=== PATIENT | male | born 1990 | race Caucasian/White ===

== ENCOUNTER 2017-05-04 10:45 | Emergency (ER) | payer BC, SELFPAY | END 2017-05-04 12:45 | disposition home or self-care (01) | PROVIDERS: Emergency Provider Emergency Medicine; Family Provider Family Medicine; Visit Provider Emergency Medicine | DX: T67.1XXA Heat syncope, initial encounter (principal) | CPT/HCPCS: 70450; 71020; 80053; 82550; 82553; 84484; 85025; 93005; 99283 ==

== ENCOUNTER 2020-02-19 11:34 | Emergency (ER) | payer BC, SELFPAY ==
[2020-02-19 11:35] VITALS: BP 134/87; PULSE 64; RESP 17; TEMP 37.2; O2SAT 99; BMI 25.8
--- NOTE | 2020-02-19 11:51 | PC.NURSE ---
PO challenged pt and he was able to swallow some dr pepper, pt states it does hurt right in the center of his chest when he swallows but was able to get it down
--- NOTE | 2020-02-19 12:39 | HMH.EDGENADL ---
ED Disposition Clinical Impression: Esophageal abrasion Qualifiers: Encounter type: initial encounter Qualified Code(s): S27.818A - Other injury of esophagus (thoracic part), initial encounter Disposition: Home, Self-Care Condition on Discharge: Fair Instructions: DI for Skin Abscess, DI for Esophageal Dysphagia Additional Instructions: Esophageal swallow study and it shows No definite esophageal foreign body. There is a small hiatal hernia with a mildly constricting Schatzki's ring with edema at the GE junction Please follow up as needed Referrals: Sanjiv Gordon MD [Primary Care Provider] - Time of Disposition: 15:00 - Critical Care Critical Care Time: No Attestation: On 02/19/20, the high probability of a clinically significant, sudden or life threatening deterioration of the following system(s) required my full and direct attention, intervention and personal management. The time I documented below is in addition to time spent performing reported procedures but includes the following listed in this critical care notation. Medical Decision Making - Medical Records Medical records reviewed: Yes: I reviewed the patient's medical records. MR Comment: Pt states last night he was eating a piece of deer steak meat and it became lodged in his esophagus and states he cant swallow anything, pt states he also has vomited and noticed blood in the vomit. He is not sure if it went down but it irritates. Here in the ER he was able to swallow liquids. CT report shows the following. findings were discussed with the patient and re assurance given. There is a small hiatal hernia with a minimally constricting. Schatzki's ring. There was a spasm noted within the distal esophagus. on multiple images. Initially there was a question of an internal. filling defect in the distal esophagus. However with different. positioning, this is felt to just be due to some mucosal edema. No. contrast extravasation evident. - Brian Inquiry Pt receiving controlled substance: No Brian was queried for this patient: No Vital Signs: 02/19/20 11:35 Temperature 99 F Temperature Source Oral Pulse Rate [Right] 64 Respiratory Rate 17 Blood Pressure [Right Arm] 134/87 Blood Pressure Mean [Right Arm] 102 02 Sat by Pulse Oximetry 99 - Radiology Data #1 Image(s): Abdomen Image Reviewed: Yes I reviewed the patient's radiology results Preliminary Findings: Normal/NAD [place] [address] [place] [address] Fluoroscopy Report Signed Patient: David Thakkar MR#: [id number] : 1990 Acct:[id number] Age/Sex: 29 / M ADM Date: 02/19/20 Loc: ER Attending Dr: Ordering Physician: Paulino Mahoney MD Date of Service: 02/19/20 Procedure(s): FL barium swallow Accession Number(s): [id number] cc: Rob Joya MD; Sanjiv Gordon MD~ PROCEDURE: FL BARIUM SWALLOW CLINICAL INDICATION: Evaluate for esophageal foreign body. Dysphagia, feels like something is stuck in the throat COMPARISON: No exams were available for comparison TECHNIQUE: In the upright position the patient was observed to initially swallow a small amount of Gastrografin followed with barium in both the AP and lateral view. The cervical esophagus was examined under fluoroscopy with images obtained. The patient was then placed prone in the right anterior oblique position and was observed to swallow barium. FLUOROSCOPY TIME: 4 minutes and 6 seconds FINDINGS: There is a small hiatal hernia with a minimally constricting Schatzki's ring. There was a spasm noted within the distal esophagus on multiple images. Initially there was a question of an internal filling defect in the distal esophagus. However with different positioning, this is felt to just be due to some mucosal edema. No contrast extravasation evident. IMPRESSION: No definite esophageal foreign body
[2020-02-19 15:13] VITALS: BP 122/72; PULSE 78; RESP 16; TEMP 36.6; O2SAT 98
== END 2020-02-19 15:14 | disposition home or self-care (01) ==
PROVIDERS: Emergency Provider Emergency Medicine; PCP Family Medicine
DX: S27.818A Other injury of esophagus (thoracic part), initial encounter (principal); T18.128A Food in esophagus causing other injury, initial encounter; K22.2 Esophageal obstruction; K44.9 Diaphragmatic hernia without obstruction or gangrene; Z88.2 Allergy status to sulfonamides
CPT/HCPCS: 74220; 99282

== ENCOUNTER → 2020-03-29 10:41 | Outpatient (CLI) | payer BC, SELFPAY ==
[2020-03-29 15:35] LABS: Coronavirus 19 IgG Antibody Negative (Negative); Coronavirus 19 IgM Antibody Negative (Negative)
== END ==
PROVIDERS: PCP Family Medicine; Visit Provider Family Medicine
DX: Z03.818 Encounter for observation for suspected exposure to other biological agents ruled out (principal)
CPT/HCPCS: 86328

== ENCOUNTER → 2020-04-07 10:24 | Outpatient (CLI) | payer BC, SELFPAY ==
[2020-04-07 16:13] LABS: Coronavirus 19 IgG Antibody Negative (Negative); Coronavirus 19 IgM Antibody Negative (Negative)
== END ==
PROVIDERS: PCP Family Medicine; Visit Provider Family Medicine
DX: Z11.59 Encounter for screening for other viral diseases (principal)
CPT/HCPCS: 86328

== ENCOUNTER 2022-05-10 13:35 | Emergency (ER) | payer BC, SELFPAY ==
[2022-05-10 14:05] VITALS: BP 137/96; PULSE 74; RESP 19; TEMP 36.8; O2SAT 96; BMI 29.5
--- NOTE | 2022-05-10 14:18 | EXP.UTC ---
Discharge Plan Disposition Patient Disposition: Home, Self-Care Condition: Good Prescriptions Prescriptions: New benzonatate [benzonatate] 100 mg capsule 100 mg PO TIDP PRN (Reason: Cough) Qty: 30 0RF methylprednisolone 4 mg Tablets,Dose Pack 4 mg PO DIRECTED Qty: 21 0RF amoxicillin-pot clavulanate 875-125 mg Tablet 1 tab PO Q12H Qty: 20 0RF Referrals Follow up/Referrals: Sanjiv Gordon MD [Primary Care Provider] - See instructions Activity Restrictions/Add. Instructions Additional Instructions/Restrictions: Drink plenty of fluids. Take tylenol or ibuprofen for pain or fever. Take the medications as directed. Follow up with your regular doctor. GO TO THE ER FOR ANY WORSENING SYMPTOMS Throw your tooth brush away and get a new one. Clinical Impressions Clinical Impression: Strep throat Stand Alone Forms Stand Alone Forms: Work/School Release Instructions Patient Instructions: Strep Throat, DI for Strep Throat Discharge ED Provider: Jesse Landers [facility] General Stated complaint: cough, sore throat Time Seen by Provider: 05/10/22 14:12 History of Present Illness Provider Complaint: He states that for the past 2 days he has had a sore throat, chills, fever, and a productive cough with yellowish sputum. Related Data Previous Rx's Medication Instructions Recorded amoxicillin 875 mg-potassium 1 tab PO Q12H #20 tabs 05/10/22 clavulanate 125 mg tablet benzonatate 100 mg capsule 100 mg PO TIDP PRN Cough #30 caps 05/10/22 methylprednisolone 4 mg tablets in 4 mg PO DIRECTED #21 tabs 05/10/22 a dose pack Allergies Allergy/AdvReac Type Severity Reaction Status Date / Time Sulfa (Sulfonamide Allergy Mild Verified 05/10/22 14:38 Antibiotics) [SULFA (SULFONAMIDE ANTIBIOTICS)] [facility] Disclaimer: The information contained in this section may have been updated after the patient was seen, as this information can be updated by other users. Social History Smoking Status: Never smoker alcohol intake: never current occupational status: employed Travel in the last 8 weeks: None ROS Obtained: Yes All systems reviewed & no additional complaints except as documented Constitutional Constitutional: Reports chills and Reports fever(s) Eyes Eyes: Denies eye discharge ENT Ears, Nose, Mouth, and Throat: Reports as per HPI Cardiovascular Cardiovascular: Denies chest pain Respiratory Respiratory: Denies chest congestion and Reports cough Gastrointestinal Gastrointestingal: Reports nausea; Denies abdominal pain, constipation, cramping, diarrhea or vomiting Musculoskeletal Musculoskeletal: Denies arthralgias Integumentary/Breasts Skin/Breast: Denies rash Neurologic Neurologic: Denies paresthesias Physical Exam General General appearance: alert and in no apparent distress Head Head exam: atraumatic, normocephalic and normal inspection Eye Eye exam: Present normal appearance, PERRL and EOMI ENT ENT exam: Present mucous membranes moist and normal external ear exam Expanded ENT Exam TM/Canal exam: Bilateral TM: erythema and bulging Nose exam: Absent sinus tenderness Mouth exam: Present normal external inspection; Absent drooling Teeth exam: Present normal inspection Throat exam: Present tonsillar erythema, tonsillomegaly and tonsillar exudate Neck Neck exam: Present normal inspection, full ROM and trachea midline; Absent tenderness, meningismus or lymphadenopathy Chest Chest inspection: Present normal inspection and symmetric chest wall rise; Absent tenderness Respiratory Respiratory exam: Present normal lung sounds bilaterally; Absent respiratory distress, wheezes or stridor Cardiovascular Cardiovascular exam: Present regular rate and normal rhythm; Absent systolic murmur or diastolic murmur Abdominal Exam Abdominal exam: Present soft and normal bowel sounds; Absent distention, tenderness,
[2022-05-10 14:26] LABS: UTC Strep Screen (Rapid) Positive (Negative)
[2022-05-10 15:36] VITALS: BP 137/96; PULSE 74; RESP 19; TEMP 36.8; O2SAT 96
== END 2022-05-10 15:36 | disposition home or self-care (01) ==
PROVIDERS: Emergency Provider Nurse Practitioner Family; PCP Family Medicine
DX: J02.0 Streptococcal pharyngitis (principal)
CPT/HCPCS: 87880; 99212; 99213; G0463

== ENCOUNTER 2023-10-21 08:00 | Outpatient (RCR) | payer BC, SELFPAY | END 2023-11-18 16:30 | disposition home or self-care (01) | LOC: PT 08:00 | PROVIDERS: Visit Provider Podiatrist Foot & Ankle Surgery | DX: M25.571 Pain in right ankle and joints of right foot (principal); S93.491A Sprain of other ligament of right ankle, initial encounter; S93.411A Sprain of calcaneofibular ligament of right ankle, initial encounter | CPT/HCPCS: 97010; 97014; 97035; 97110; 97112; 97163; G0283 ==

== ENCOUNTER 2024-09-22 10:05 | Outpatient (CLI) | payer BC, SELFPAY | END 2024-09-22 23:59 | disposition home or self-care (01) | LOC: LAB 10:06 | PROVIDERS: PCP Nurse Practitioner; Visit Provider Internal Medicine Gastroenterology | DX: R19.5 Other fecal abnormalities (principal); R14.0 Abdominal distension (gaseous) ==

== ENCOUNTER 2024-10-14 15:23 | Outpatient (CLI) | payer BC, SELFPAY ==
--- OUTSIDE RECORDS SUMMARY | 2024-10-07 10:00 | XMS_ITS | Encounter Summary ---
Author Organization [facility] Address [address] [place] [address] Phone [email or web address] Care Team Providers Care Human Performance Technologist Name Role Phone Sanjiv Gordon MD Primary Care Provider [phone] Reason for Visit * Reason Comments Neurological Issue Encounter Details Date Type Department Care Team (Latest Contact Info) Description 10/07/2024 10:00 AM EDT Clinical Support [place] [facility] [address] [place] [address] Arianna Hart, TERA [address] [place] [address] Elevated blood pressure reading (Primary [...] is a 33 y.o. male. WD ID: [id number] Employer: [employer] Date of Hire: 09/17/2016 Cost Center: [id number] Description: ASY 1 Team: Jeffrey 2 Shift: 1 Full-time GL and #: Thanh Patton Responded to tones dropped for LHD in 300. Onset: 0920am Symptoms: LHD, 'felt like he was going to pass out', shakiness Transported TM back to [facility] 2000 via [facility]Z-Go without stretcher. Notes: [...] SR, no acute changes/ectopy. us Arianna Hart DECISION UNIT RN ECG ORDERABLES Final Resul t * (ABNORMAL) [...] giddiness documented in this encounter Care Teams Human Performance Technologist Relationship Specialty Start Date End Date Sanjiv Gordon MD [facility] [address] [place] [address] PCP - General 10/20/20 documented as of this encounter
--- OUTSIDE RECORDS SUMMARY | 2024-10-14 15:28 | XMS_ITS | Referral Summary ---
Author Organization [facility] [facility] [employer] Address [address] [place] [address] Care Team Providers Care Forestry Technician Name Role Phone Unavailable Primary Care Provider Unavailabl e Allergies Active Allergy Reactions Criticality Noted Date Comments Sulfur Swelling High 09/17/2023 Medications No known medications Social History Tobacco Use Types Packs/Day Years Used Date Smoking Tobacco: Never Smokeless Tobacco: Current Tobacco Cessation:Ready to Q uit: Not Asked; Counseling Given: Not Answered Alcohol Use Standard Drinks/Week Comments Never 0 (1 standard drink = 0.6 oz pur e alcohol) Interpersonal Safety Answer Date Record ed Family or friends hurt you Not on file 09/11 Family or friends insult you Not on file 01/2024 Family or friends threaten you Not on file 0 09/12/2023 Family or friends scream or curse at you Not on file 09/12/2023 Food Insecurity Answer Date Recorded Food run out past 12 months Not on file 01/2024 Food did not last past 12 months Not on file 09/12/2023 Employment Answer Date Recorded Help finding and keeping a job Not on file 0 09/12/2023 Family and Community Support Answer Jian e Recorded Help with Day to Day Activities Not on file 09/12/2023 Feeling Lonely or Isolated Not on file 09/11 Educational Attainment Answer Date Gaurav rded Speak language other than Bulgarian at home Not on file 09/12/2023 Want help with school or training Not on file 09/12/2023 Depression Answer Date Recorded PHQ-2 Risk Not on file 09/12/2023 Disabilities Answer Date Recorded Difficulty concentrating Not on file 024 Difficulty doing errands alone Not on file 0 09/12/2023 Substance Use Answer Date Recorded Used prescription meds for non-medical reasons N ot on file 09/12/2023 Used illegal drugs past 12 months Not on file 09/12/2023 Sex and Gender Information Value Date Recorded Sex Assigned at Not on file Legal Sex Male 6:04 PM CDT Gender Identity Not on file Sexual Orientation Not on file Last Filed Vital Signs Vital Sign Reading Time Taken Comments Blood Pressure 146/77 10/29/2023 10:22 AM EDT Pulse 81 10/29/2023 10:22 AM EDT Temperature - - Respiratory Rate 18 09/17/2023 11:23 AM EDT Oxygen Saturation - - Inhaled Oxygen Concentration - - Weight 90 kg (198 lb 6.6 oz) 10/29/2023 10:22 AM EDT Height 170.2 cm (5' 7 ) 10/29/2023 10:22 AM EDT Body Mass Index 31.08 10/29/2023 10:22 AM EDT Plan of Treatment Not on file Insurance BLUE CROSS/BLUE SHIELD
--- OUTSIDE RECORDS SUMMARY | 2024-10-14 15:28 | XMS_ITS | Clinical Summary ---
Author Organization [facility] Address [address] [place] [address] Care Team Providers Care Ekg Technician Name Role Phone Unavailable Primary Care Provider Unavailabl e Allergies Active Allergy Reactions Criticality Noted Date Comments Sulfur Swelling High 09/17/2023 Medications No known medications Family History Medical History Relation Name Comments High blood pressure Father Nelson Thakkar Cancer Maternal Grandmother R Bijan Relation Name Status Comments Father Nelson Thakkar Maternal Grandmother R Bijan Social History Tobacco Use Types Packs/Day Years [...] Date Gaurav rded Speak language other than Kenyan at home Not on file 09/12/2023 Want [...] 10/29/2023 10:22 AM EDT Plan of Treatment Health Maintenance Due Date Last Done Comments Depression Screening (12+) 2000 Tobacco Cessation Counseling and Screening (12+) 2000 HIV Screening 12/14/2003 Hepatitis C Screening 2006 DTAP/TDAP/TD VACCINES (1 - Tdap) 12/14/2007 Lipid Panel 12/14/2023 COVID-19 VACCINE ( - 2023-2 5 season) 2024 Influenza Vaccine (Season Ended) 2025 Pneumococcal Vaccine: 0-49 Years Aged Out No longer eligible based on patient's age to complete this topic Insurance BLUE CROSS/BLUE SHIELD
--- OUTSIDE RECORDS SUMMARY | 2024-10-14 15:28 | XMS_ITS | Clinical Summary ---
Author Organization [facility] Address [address] [place] [address] Care Team Providers Care Patent Law Specialist Name Role Phone Sanjiv Gordon MD Primary Care Provider + [phone] Allergies Active Allergy Reactions Criticality Noted Date Comments Sulfa Drugs Other - please docum ent in the comment field Low 10/20/2020 Medications ibuprofen 200 MG tablet Take by mouth every 6 (six) hours if needed for mild pain. Active Social History Tobacco Use Types Packs/Day Years Used Date Smoking Tobacco: Never Smokeless Tobacco: Current Chew Sex and Gender Information Value Date Recorded Sex Assigned at Not on file Legal Sex Male 6:58 PM EDT Gender Identity Not on file Sexual Orientation Not on file Last Filed Vital Signs Vital Sign Reading Time Taken Comments Blood Pressure 128/87 12/20/2020 3:00 PM EDT Pulse 67 12/20/2020 3:00 PM EDT Temperature - - Respiratory Rate - - Oxygen Saturation 100% 12/20/2020 3:00 PM EDT Inhaled Oxygen Concentration - - Weight 81.2 kg (179 lb) 12/20/2020 3:00 PM EDT Height - - Body Mass Index - - Plan of Treatment Health Maintenance Due Date Last Done Comments [facility]-Depression Screening 1988 [facility]-/Child/Adol SDOH Screenings 1988 [facility]-Hepatitis B Vaccines (2 of 3 - 3-dose series) 01/10/2001 2000 [facility]-Varicella Vaccines (1 of 2 - 13+ 2-dose series) 2001 HPV Vaccines (1 - Male 3-dos e series) 12/14/2003 [facility]- SDOH Screenings 2006 [facility]Y-Adult SDOH Screenings 2006 [facility]Y-DTaP,Tdap,and Td Vaccine s (1 - Tdap) 12/14/2007 [id number] Vaccine (1 - 20 24-25 season) 2024 [facility]-Influenza Vaccine (Seaso n Ended) 2025 [facility]Y-Zoster Vaccines (1 of 2) 2038 [facility]Y-HIB Vaccines Aged Out No longer e ligible based on patient's age to complete this topic [facility]-Hepatitis A Vaccines Aged Out No longer eligible based on patient's age to complete this topic [facility]Y-IPV Vaccines Aged Out No longer e ligible based on patient's age to complete this topic [facility]Y-Pneumococcal Vaccine: Pediatrics (0 to 5 Years) and At-Risk Patients (6 to 49 Years) Aged Out No long er eligible based on patient's age to complete this topic [facility]Y-Rotavirus Vaccines Aged Out No lo nger eligible based on patient's age to complete this topic [place] [address] Care Teams Patent Law Specialist Relationship Specialty Start Date End Date Sanjiv Gordon MD [address] [facility] [address] [place] [address] PCP - General 09/16/20
--- OUTSIDE RECORDS SUMMARY | 2024-10-14 15:28 | XMS_ITS | Clinical Summary ---
Author Organization [facility] Address [address] [place] [address] Phone [email or web address] Care Team Providers Care Piece Meat Trimmer Name Role Phone Sanjiv Gordon MD Primary Care Provider [phone] Allergies Active Allergy Reactions Criticality Noted Date Comments Sulfa Antibiotics 10/20/2020 Medications ergocalciferol (VITAMIN D2) 1.25 MG (68678 UT) capsule TAKE ONE CAPSULE BY MOUTH every WEEK FOR 90 DAYS 07/28/2024 Active Active Problems Problem Noted Date Diagnosed Date Esophageal abrasion 09/09/2023 Encounters Date Type Department Care Team Description 10/07/2024 10:00 AM EDT Clinical Support DEY[facility] Buttwn [address] [place] [phone] Arianna Hart NP Elevated blood pressure reading (Primary Dx); Dizziness from Last 3 Months Social History Tobacco Use Types Packs/Day Years Used Date Smoking Tobacco: Never Smokeless Tobacco: Current Tobacco Cessation:Ready to Q uit: Not Asked; Counseling Given: Not Answered Intimate Partner Violence Answer Date R ecorded [...] Pulse 65 10/07/2024 10:44 AM EDT Temperature 35.8 C (96.4 F) 02/03/2021 6:36 AM EDT Respiratory Rate 16 10/07/2024 9:50 AM EDT Oxygen Saturation 99% 10/07/2024 10:05 AM EDT Inhaled Oxygen Concentration - - Weight 91.6 kg (202 lb) 11/04/2023 6:06 AM EDT Height 170.2 cm (5' 7 ) 10/20/2020 10:05 AM EDT Body Mass Index 31.64 10/20/2020 10:05 AM EDT Plan of Treatment Health Maintenance Due Date Last Done Comments Dental Cleaning/Exam 1988 HIV Screening 1988 Hepatitis C Screening 1988 Hepatitis B Immunization (2 of 3 - 3-dose series) 01/10/2001 2000 Annual Preventive Exam 2006 Hep B Infection Screening - Triple Screen 2006 Tetanus Diphtheria and Pertu ssis Immunization (1 - Tdap) 12/14/2007 Covid-19 Immunization (1 - 2 024-25 season) 2024 Influenza Immunization (Seas on Ended) 2025 HIB Immunization Aged Out No longer e ligible based on patient's age to complete this topic HPV Immunization Aged Out No longer e ligible based on patient's age to complete this topic Hepatitis A Immunization Aged Out No longer eligible based on patient's age to complete this topic Pneumococcal: Ped (0 to 5 Yr s) and At-Risk Member (6 to 64 Yrs) Aged Out No longer e ligible based on patient's age to complete this topic Polio Immunization Aged Out No longer eligible based on patient's age to complete this topic Varicella Immunization Aged Out No lo nger eligible based on patient's age to complete this topic Procedures Procedure Name Priority Date/Time Associated Diagnosis Comments ECG 12-LEAD Routine 10/07/2024 11:17 AM EDT Dizziness POCT GLUCOSE Routine 10/07/2024 10:22 AM EDT Dizziness from Last 3 Months Results * ECG 12 lead (10/07/2024 11:17 AM EDT) Marlenes Arianna Hart NP - 10/07/2024 11:17 AM EDT SR, no acute changes/ectopy. Arianna Hart NP ECG ORDERABLES Final Resul t * (ABNORMAL) POCT glucose (10/07/2024 10:22 AM EDT) Glucose, POC 104(A) 65 - 99 mg/dL Glucose (Glucometer), POC IQC Yes, verified internal control performed correctly. Lot Number see comments Comment:ER bag 1 Expiration Date see comments Comment:ER bag 1 Blood (Blood, Capillary) 10/07/2024 10:22 AM EDT Arianna Hart NP POINT OF CARE TEST ORDERABL ES Final Result from Last 3 Months Insurance OPT OUT NO COPAY NB OPT OUT NO COPAY NB Care Teams Piece Meat Trimmer Relationship Specialty Start Date End Date Sanjiv Gordon MD [address] [place] [address] [place] [address] PCP - General 10/20/20
== END 2024-10-14 23:59 | disposition home or self-care (01) ==
LOC: RT 15:24
PROVIDERS: PCP Nurse Practitioner; Visit Provider Internal Medicine
DX: I49.3 Ventricular premature depolarization (principal); I49.1 Atrial premature depolarization
CPT/HCPCS: 93270

== ENCOUNTER 2024-10-15 07:45 | Outpatient (CLI) | payer BC, SELFPAY ==
--- OUTSIDE RECORDS SUMMARY | 2024-10-07 10:00 | XMS_ITS | Encounter Summary ---
Author Organization [facility] Address [address] [place] [address] Phone [email or web address] Care Team Providers Care Associate Professor Of Surgery Name Role Phone Sanjiv Gordon MD Primary Care Provider [phone] Reason for Visit * Reason Comments Neurological Issue Encounter Details Date Type Department Care Team (Latest Contact Info) Description 10/07/2024 10:00 AM EDT Clinical Support [place] [facility] [address] [place] [address] Arianna Hart, TERA [address] [place] [address] Elevated blood pressure reading (Primary Dx); Dizziness Social History Tobacco Use Types Packs/Day Years Used Date Smoking Tobacco: Never Smokeless Tobacco: Current Intimate Partner Violence Answer Date R ecorded Insults You Not on file 08/16/2020 Threatens You Not on file 08/16/2020 Screams at You Not on file 08/16/2020 Physically Hurt Not on file 08/16/2020 Intimate Partner Violence Score Not on file 08/16/2020 Depression Answer Date Recorded PHQ-9 Total Score 0 02/03/2021 Stress Answer Date Recorded Stress in your Life Not on file 03/09/2024 Dealing with Stress 3 03/09/2024 Sex and Gender Information Value Date Recorded Sex Assigned at Not on file Legal Sex Male 7:30 AM CDT Gender Identity Not on file Sexual Orientation Not on file documented as of this encounter Last Filed Vital Signs Vital Sign Reading Time Taken Comments Blood Pressure 137/87 10/07/2024 10:44 AM EDT Pulse 65 10/07/2024 10:44 AM EDT Temperature - - Respiratory Rate 16 10/07/2024 9:50 AM EDT Oxygen Saturation 99% 10/07/2024 10:05 AM EDT Inhaled Oxygen Concentration - - Weight - - Height - - Body Mass Index - - documented in this encounter Patient Instructions * Patient Instructions* Arianna Hart NP - 10/07/2024 10:00 AM EDT TM not fit for duty due to persistent dizziness. TM declined ER eval. Will contact his PCP. Family to transport today. F/u once released to RTW reg duty. documented in this encounter Progress Notes * Arianna Hart NP - 10/07/2024 10:00 AM EDT Subjective David Thakkar is a 33 y.o. male. WD ID: [id number] Employer: [employer] Date of Hire: 09/17/2016 Cost Center: [id number] Description: ASY 1 Team: Jeffrey 2 Shift: 1 Full-time GL and #: Thanh Patton Responded to tones dropped for LHD in 300. Onset: 0920am Symptoms: LHD, 'felt like he was going to pass out', shakiness Transported TM back to [facility] 2000 via [facility]Go without stretcher. Notes: Upon arrival, TM is A&Ox4. GCS 15. Skin, pink, warm and dry. TM reports while on line hegot really dizzy and leaned into car because he felt he was going to pass out. TM denies any LOC. TM denies any hitting his head. TM denies any CP or SOB. FSBG 104 mg/dl. Radial pulses strong and palpable. TM reports when he was 24 yo he had episodes where he would pass out and have seizure like activity. TM states when that happened he had a full work up including EEG monitoring, echo, EKG, stress test and a diagnostic heart cath. TM states they found an arrhythmia, but patient is a poor historian and unsure of the diagnosis. TM denies taking any medications, and has not seen a neurologist/ca rdiologist since he was 24. TM states he last had a dizzy spell around 6 months ago, and syncopal episode 5 years ago but was never seen by medical. TM states he has not ate anything this morning, and has had soda. TM states he has not felt well since waking this morning. TM reports a cough and nausea and dry heaving. TM denies any being around anyone with covid or flu that he can recall. TM states he has been feeling nauseated in the morning lately and has seen his PCP but they are unsure whatis causing it. Triage nurse: Liliya Perez RN This was an emergency call with a disruption in patient care and scheduled clinic appointments. History Reviewed: Allergies Meds Problems Med Hx Surg Hx HPI As noted in CC. TM in per EMS/RN with c/o dizziness while working. States sudden onset and he felt as if he would pass out. TM denies any h/a, chest pain, palpitations, SOA, n/t, weakness or diaphoresis. Has had some nausea recently and is seeing new PCP regarding this. Hx of dizziness several years ago with workup. No specific dx given. Last episode ~ 6 months ago. FH: CAD, father stents & AICD/pacer, mother CAD/AICD/pacer. Non-smoker, does dip. BP elevated today. Still with some dizziness. Not fit for duty. Declines ER eval. Later tells RN that he has had a cough. None heard while in ER. Review of Systems Constitutional: Negative for chills, diaphoresis and fever. Respiratory: Negative for shortness of breath. Cardiovascular: Negative for chest pain and palpitations. Gastrointestinal: Positive for a.m. nausea. Skin: Negative for pallor. Neurological: Positive for dizziness. Negative for weakness, numbness and headaches. Objective Vitals: 10/07/24 0950 10/07/24 1005 10/07/24 1044 BP: (!) 152/98 137/87 Patient Position: Sitting Pulse: 67 65 Resp: 16 SpO2: 100% 99% Orthostatic Vitals: 10/07/24 1004 10/07/24 1005 10/07/24 1007 Orthostatic BP: 143/97 145/96 149/103 Patient Position: Lying Sitting Standing Orthostatic Pulse: 66 64 69 Results for orders placed or performed in visit on 10/07/24 POCT glucose Collection Time: 10/07/24 10:22 AM Result Value Ref Range Glucose, POC 104 (A) 65 - 99 mg/dL Glucose (Glucometer), POC IQC Yes, verified internal control performed correctly. Lot Number see comments Expiration Date see comments Physical Exam Vitals and nursing note reviewed. Constitutional: General: He is not in acute distress. Appearance: He is not diaphoretic. HENT: Right Ear: Tympanic membrane normal. Left Ear: Tympanic membrane normal. Mouth/Throat: Mouth: Mucous membranes are moist. Eyes: Extraocular Movements: Extraocular movements intact. Pupils: Pupils are equal, round, and reactive to light. Cardiovascular: Rate and Rhythm: Normal rate and regular rhythm. Heart sounds: Normal heart sounds. Pulmonary: Effort: Pulmonary effort is normal. Breath sounds: Normal breath sounds. Abdominal: Palpations: Abdomen is soft. Skin: General: Skin is warm and dry. Capillary Refill: Capillary refill takes less than 2 seconds. Neurological: General: No focal deficit present. Mental Status: He is alert and oriented to person, place, and time. Cranial Nerves: No cranial nerve deficit. Sensory: No sensory deficit. Motor: No weakness. Gait: Gait normal. Comments: No facial asymmetry, no drift. Psychiatric: Mood and Affect: Mood normal. Behavior: Behavior normal. Assessment: ICD-10-CM ICD-9-CM 1. Elevated blood pressure reading R03.0 796.2 2. Dizziness R42 780.4 POCT glucose ECG 12 lead Orders Placed This Encounter Procedures POCT glucose ECG 12 lead SR, no acute changes/ectopy. Patient Instructions TM not fit for duty due to persistent dizziness. TM declined ER eval. Will contact his PCP. Family to transport today. F/u once released to RTW reg duty. documented in this encounter Plan of Treatment Not on file documented as of this encounter Procedures Procedure Name Priority Date/Time Associated Diagnosis Comments ECG 12-LEAD Routine 10/07/2024 11:17 AM EDT Dizziness POCT GLUCOSE Routine 10/07/2024 10:22 AM EDT Dizziness documented in this encounter Results * ECG 12 lead (10/07/2024 11:17 AM EDT) Impressions Arianna Hart NP - 10/07/2024 11:17 AM EDT SR, no acute changes/ectopy. us Arianna Hart FISH HATCHERY WORKER ECG ORDERABLES Final Resul t * (ABNORMAL) POCT glucose (10/07/2024 10:22 AM EDT) Glucose, POC 104(A) 65 - 99 mg/dL Glucose (Glucometer), POC IQC Yes, verified internal control performed correctly. Lot Number see comments Comment:ER bag 1 Expiration Date see comments Comment:ER bag 1 Blood (Blood, Capillary) 10/07/2024 10:22 AM EDT Arianna Hart NP POINT OF CARE TEST ORDERABL ES Final Result documented in this encounter Visit Diagnoses Diagnosis Elevated blood pressure reading- Primary Elevated blood pressure reading without diagnosis of hypertension Dizziness Dizziness and giddiness documented in this encounter Care Teams Associate Professor Of Surgery Relationship Specialty Start Date End Date Sanjiv Gordon MD formerly [facility] [address] [place] [address] PCP - General 10/20/20 documented as of this encounter
--- OUTSIDE RECORDS SUMMARY | 2024-10-15 07:48 | XMS_ITS | Clinical Summary ---
Author Organization [facility] Address [address] [place] [address] Phone [email or web address] Care Team Providers Care Chief Scientific Officer Name Role Phone Sanjiv Gordon MD Primary Care Provider [phone] Allergies Active Allergy Reactions Criticality Noted Date Comments Sulfa Antibiotics 10/20/2020 Medications ergocalciferol (VITAMIN D2) 1.25 MG (74382 UT) capsule TAKE ONE CAPSULE BY MOUTH every WEEK FOR 90 DAYS 07/28/2024 Active Active Problems Problem Noted Date Diagnosed Date Esophageal abrasion 09/09/2023 Encounters Date Type Department Care Team Description 10/07/2024 10:00 AM EDT Clinical Support DEYSI Buttwn [address] [place] [phone] Arianna Hart NP Elevated blood pressure [...] OPT OUT NO COPAY NB Care Teams Chief Scientific Officer Relationship Specialty Start Date End Date Sanjiv Gordon MD [address] [place] [address] [place] [address] PCP - General 10/20/20
--- OUTSIDE RECORDS SUMMARY | 2024-10-15 07:48 | XMS_ITS | Clinical Summary ---
Author Organization [facility] Address [address] [place] [address] Care Team Providers Care Technology Sales Specialist Name Role Phone Sanjiv Gordon MD Primary Care Provider + [phone] Allergies Active Allergy Reactions Criticality Noted Date [...] Td Vaccine s (1 - Tdap) 12/14/2007 [id number] Vaccine (1 - 20 24-25 season) 2024 [...] age to complete this [place] [address] Care Teams Technology Sales Specialist Relationship Specialty Start Date End Date Sanjiv Gordon MD [address] [facility] [address] [place] [address] PCP - General 09/16/20
--- OUTSIDE RECORDS SUMMARY | 2024-10-15 07:48 | XMS_ITS | Clinical Summary ---
Author Organization [employer] [facility] Address [address] [place] [address] Care Team Providers Care Etymology Professor Name Role Phone Unavailable Primary Care Provider Unavailabl e Allergies Active Allergy Reactions Criticality Noted Date Comments Sulfur Swelling High 09/17/2023 Medications No known medications Family History Medical History Relation Name Comments High blood pressure Father Nelson Thakkar Cancer Maternal Grandmother R Bijan Relation Name Status Comments Father Nelosn Thakkar Maternal Grandmother R Bijan Social History [...] Date Gaurav rded Speak language other than Norwegian at home Not on file 09/12/2023 Want [...]
--- OUTSIDE RECORDS SUMMARY | 2024-10-15 07:48 | XMS_ITS | Referral Summary ---
Author Organization [facility] [facility] Address [address] [place] [address] Care Team Providers Care Material Clerk Name Role Phone Unavailable Primary Care Provider [...] Date Gaurav rded Speak language other than Iraqi at home Not on file 09/12/2023 Want [...]
[2024-10-16 12:18] LABS: Cortisol,AM 14.3 ug/dL (6.2-19.4)
[2024-10-20 08:12] LABS: Free Testosterone (Direct) 14.7 pg/mL (8.7-25.1); Testosterone, Total, LC/MS 331.6 ng/dL (264.0-916.0)
== END 2024-10-15 23:59 | disposition home or self-care (01) ==
LOC: LAB 07:46
PROVIDERS: PCP Nurse Practitioner; Visit Provider Internal Medicine
DX: R42 Dizziness and giddiness (principal); R55 Syncope and collapse; R94.31 Abnormal electrocardiogram [ECG] [EKG]
CPT/HCPCS: 36415; 82533; 84402; 84403

== ENCOUNTER 2024-10-29 10:38 | Outpatient (CLI) | payer BC, SELFPAY ==
--- OUTSIDE RECORDS SUMMARY | 2024-10-07 10:00 | XMS_ITS | Encounter Summary ---
Author Organization [facility] Address [address] [place] [address] Phone [email or web address] Care Team Providers Care Kitchen Worker Name Role Phone Sanjiv Gordon MD Primary Care Provider [phone] Reason for Visit * Reason Comments Neurological Issue Encounter Details Date Type Department Care Team (Latest Contact Info) Description 10/07/2024 10:00 AM EDT Clinical Support [place] [facility] [address] [place] [address] Arianna Hart, TERA [address] [place] [address] Elevated blood pressure reading (Primary [...] is a 33 y.o. male. WD ID: [id number] Employer: [employer] Date of Hire: 09/17/2016 Cost Center: [id number] Description: ASY 1 Team: Jeffrey 2 Shift: 1 Full-time GL and #: Thanh Patton Responded to tones dropped for LHD in 300. Onset: 0920am Symptoms: LHD, 'felt like he was going to pass out', shakiness Transported TM back to [facility] 2000 via EZ-Go without stretcher. Notes: Upon [...] SR, no acute changes/ectopy. us Arianna Hart FIELD CROP FARMWORKER ECG ORDERABLES Final Resul t * (ABNORMAL) [...] giddiness documented in this encounter Care Teams Kitchen Worker Relationship Specialty Start Date End Date Sanjiv Gordon MD [facility] [address] [place] [address] PCP - General 10/20/20 documented as of this encounter
--- NOTE | 2024-10-29 | CA_ITS ---
APPROVED REPORT Exam: Exercise Treadmill Technologist: Cathleen [place] Ht: 5 ft 7 in Wt: 208 lbs BSA: 2.06 m2 Medical History Medications: Vitamin D2 Stress Test Details Test: Exercise stress testing was performed using a Rui protocol. HR Resting HR: 61 bpm Max Heart Rate (APMHR): 185.821450 bpm Max HR Achieved: 144 bpm Target HR (85% APMHR): 157.308840 bpm % of APMHR: 77.84 Recovery HR: 102 bpm BP Resting BP: 136.0/94.0 mmHg Max BP: 169.0/94.0 mmHg Recovery BP: 157.0/86.0 mmHg ECG Resting ECG: NSR, Inferior STT Abnormalities. Clinical Highest Stage Achieved: III Stress ECG Conclusion Max HR: 172 Max BP: 169/94 METs: 11.8 Test stopped due to: SOA, leg aches. Symptoms: No CP. Arrhythmias/Ectopy: None. ST-T Changes: Exacerbation of baseline Inferior STT wave depression. Conclusion: Non-Diagnostic due to artifact and exacerbation of baseline EKG abnormalities. Electronically signed by : Marija Levy MD 10/31/2024 00:12:28
--- OUTSIDE RECORDS SUMMARY | 2024-10-29 10:41 | XMS_ITS | Clinical Summary ---
Author Organization [facility] Address [address] [place] [address] Phone [email or web address] Care Team Providers Care Electrician Assistant Name Role Phone Sanjiv Gordon MD Primary Care Provider [phone] Allergies Active Allergy Reactions Criticality Noted Date Comments Sulfa Antibiotics 10/20/2020 Medications ergocalciferol (VITAMIN D2) 1.25 MG (99620 UT) capsule TAKE ONE CAPSULE BY MOUTH every WEEK FOR 90 DAYS 07/28/2024 Active Active Problems Problem Noted Date Diagnosed Date Esophageal abrasion 09/09/2023 Encounters Date Type Department Care Team Description 10/07/2024 10:00 AM EDT Clinical Support DEYSI Buttwn [address] [place] [phone] Arianna Hart NP Elevated blood pressure [...] OPT OUT NO COPAY NB Care Teams Electrician Assistant Relationship Specialty Start Date End Date Sanjiv Gordon MD [address] [place] [address] [place] [address] PCP - General 10/20/20
--- OUTSIDE RECORDS SUMMARY | 2024-10-29 10:42 | XMS_ITS | Continuity of Care Document ---
Author Organization [place] - [employer], [facility] Address [address] [place] [phone] Assessment No assessment recorded. Plan of Treatment Reminders Order Date Submit Date Provider Last Modified By Organization Details Last Modified Time Details Appointments None recorded. Lab lipid panel, serum 2024 025 [place] [facility] [address] [place], [address], 5 08:09:12 CBC w/ auto diff [address] [facility] [address] [place], [address], 5 08:09:11 CMP, serum or plasma 2024 025 [facility], [address] [place], [address], 5 08:09:12 TSH + free T4, serum [address] [facility] [address] [place], [address], 5 08:09:11 magnesium, serum or plasma 2024 025 [place] [facility] [address] [place], [address], 5 08:09:14 vitamin D, 25-hydroxy , total, serum 2024 025 [place] [facility] [address] [place], [address], 5 08:09:14 iron + TIBC + ferritin, serum 2024 025 [place] [facility] [address] [place], [address], 5 08:09:10 cobalamin and folate panel, serum 2024 025 [place] [facility] [address] [place], [address], 5 08:09:13 Referral None recorded. Procedures None recorded. Surgeries None recorded. Imaging None recorded. Medication Orders None recorded. Patient TargetsNo targets recorded. Patient InstructionsNo instructions recorded. Reason for Referral None Reported. Procedures Surgical History Date Name Laterality Status Provider Name and Address Organization Details Recorded Time Appendectomy completed [facility] [employer]. 09/02/2023 08:41:43 Imaging Results None recorded. Procedure Notes None recorded. Medical Equipment None Reported. Allergies Allergen ID Allergen Name Allergen Category Reaction Reaction Severity Criticality Documentation Date Start Date Code Code System Note Provider Name and Address Organization Details Recorded Time 58965 Substance with sulfonami de structure and antibacte rial mechanism of action (substanc e) medicatio n anaphylax is Not available Not available 09/02/2023 02869 8003 SNOMED [facility] [place] [facility] 4 08:41:43 Medications Name Sig Start Date Stop Date Status Note LastModified by Organization Details LastModified Time prednisone 20 mg tablet Take 1 tablet 3 times a day by oral route for 3 days. 09/11 completed Not Available Not Available Not Available meloxicam 7.5 mg tablet Take 1 tablet every day by oral route as needed. active Not Available Not Available No t Available Vitamin D2 1,250 mcg (50,000 unit) capsule TAKE ONE CAPSULE BY MOUTH every WEEK FOR 90 DAYS active Not Available Not Available No t Available Vitals Date Recorded Body height Body mass index (BMI) Body weight Heart rate Oxygen saturation Oxygen saturation in Arterial blood by Pulse oximetry Systolic blood pressure Diastolic blood pressure Systolic blood pressure Diastolic blood pressure Provider Name and Address Organization Details Last Updated DateTime 5 170.18 cm 32.3 kg/m2 11071.0 3 g 87 /min 97 % 97 % 147 mm[Hg] 87 mm[Hg] 134 mm[Hg] 88 mm[Hg] Marilyn Bangura [employer], [employer]. 13:24:49 Social History Question Answer Notes LastModified by Organizat ion Details LastModified Time Tobacco Smoking Status Never Smoker Malia leonard [employer]. 09/02/2023 08:43:21 Do You Have An Advance Directive? No Information not available 09/02/2023 Is Your Home Air Conditioned? Yes Information not available 09/02/2023 How Many Years Have You Consumed Alcohol? 6 Information not available 09/02/2023 Do You Wear A Helmet When Biking? No [email or web address] Information not available 10/13/2024 Are You Blind Or Do You Have Difficulty Seeing? No Information not available 09/02/2023 What Is Your Level Of Caffeine Consumption? Heavy Information not available 09/02/2023 In The 14 Days Before Symptom Onset, Have You Had Close Contact With A Laboratory-confir med COVID-19 While That Case Was Ill? No Information not available 09/02/2023 In The 14 Days Before Symptom Onset, Have You Had Close Contact With A Person Who Is Under Investigation For COVID-19 While That Person Was Ill? No Information not available 09/02/2023 Have You Been To An Area Known To Be High Risk For COVID-19? No Information not available 09/02/2023 Are You Deaf Or Do You Have Serious Difficulty Hearing? No Information not available 09/02/2023 What Type Of Diet Are You Following? REGULAR [email or web address] Information not available 10/13/2024 Who Is Your Employer? [email or web address] Information not available 09/02/2023 Are There Any Guns Present In Your Home? Yes Information not available 09/02/2023 Which Of Your Hands Is Dominant? Right Information not available 09/02/2023 Where Do You Live? SingleLevelHouse Information not available 09/02/2023 Do You Have A Medical Power Of Corporate General Manager? No Information not available 09/02/2023 What Was The Date Of Your Most Recent Tobacco Screening? 10/13/2024 [email or web address] Information not available 10/13/2024 Have You Ever Been Counseled For Unhealthy Alcohol Use? No Information not available 09/02/2023 Do You Have Any Pets? No Information not available 09/02/2023 What Is Your Relationship Status? Single Information not available 09/02/2023 Do You Use Your Seat Belt Or Car Seat Routinely? Yes Information not available 09/02/2023 Do You Have Smoke And Carbon Monoxide Detectors In Your Home? Yes Information not available 09/02/2023 Are You Passively Exposed To Smoke? No Information no t available 09/02/2023 Are There Any Smokers In Your House? No Information not available 09/02/2023 Do You Participate In Social Media? Yes [email or web address] Information not available 10/13/2024 Do You Use Sunscreen Routinely? Yes Information not available 09/02/2023 Have You Recently Traveled Abroad? No Information not available 09/02/2023 Do You Have Difficulty Walking Or Climbing Stairs? No Information not available 09/02/2023 Are You Currently In School? No Information not available 09/02/2023 Do You Have Any Dietary Restrictions? No [email or web address] Information not available 10/13/2024 Sex: Male Functional Status Question Answer Note LastModified by Organizat ion Details LastModified Time How many times per week do you consume alcohol? Less than 1 time per week Information not available 09/02/2023 Do you use any illicit or recreational drugs? No Information not available 09/02/2023 Do you or have you ever used any other forms of tobacco or nicotine? Yes Information not available 09/02/2023 What is your level of alcohol consumption? Occasional Information not available 09/02/2023 Do you or have you ever used smokeless tobacco? Current snuff user Information not available 09/02/2023 Are you currently employed? Yes Information not available 09/02/2023 Do you have transportation difficulties? No Information not available 09/02/2023 Are you able to walk? YESWOREST Information not available 09/02/2023 Do you have difficulty doing errands alone? No Information not available 09/02/2023 Are you able to care for yourself? Yes Information n ot available 09/02/2023 Do you or have you ever used e-cigarettes or vape? Never used electronic cigarettes Information not available 09/02/2023 Mental Status Question Answer Note LastModified by Organizat ion Details LastModified Time Do you feel stressed (tense, restless, nervous, or anxious, or unable to sleep at night)? [id number] [email or web address] Information not available 10/13/2024 Do you have difficulty concentrating, remembering or making decisions? No [facility] Information no t available 09/02/2023 Family History Relationship Description Onset Age of this Age Resolved Age Notes LastModified by Organization Details LastModified Time Father Hypertensive disorder [email or web address] Not available 2023 08:41:43 Medical History Condition Response Coronary Artery Disease N Other N Gout N Kidney Stones N Blood Diseases N Hyperthyroidism N Breast Cancer N Blood Transfusion N Emergency room visit since last appointm ent. N Hypothyroidism N Lung Disease N COPD N Dermatologic Disorders N Depression N Defects or Inherited Disease N Developmental or Behavioral Disorders N Breast Problem N Difficulty Swallowing N Anesthesia Complications N History of STI N Meniere's disease N Anxiety Disorder N Muscle, Joint, or Bone Problems N Autoimmune disease N Vision or Eye Problems N Arthritis N Polyps N Infertility N Mental Disorder N Congenital Anomalies N Acid Reflux (GERD) N Cancer N Stroke N Neurologic/Epilepsy N Endometriosis N Bladder or Kidney Problems N High Cholesterol N Liver Disease N Psychiatric/Mental Health Condition N Organ Transplant N Dialysis N Fibromyalgia N Schizophrenia N Headaches N Kidney Disease N Allergies/Hayfever N Heart Problems N Ear or Hearing Problems N Hospitalizations N Learning Disorder N Artificial Joints N Thyroid Problems N GI Problems N Acne N ADD/ADHD N Eating Disorder N Anemia N Constipation N Mental Illness N Ovarian Cancer N Diabetes N Bedwetting N Hepatitis/Liver Disease N Tuberculosis N Eczema N Diverticulitis N Abuse/Domestic Violence N Asthma N Trauma/Violence N Substance Abuse N Reflux/GERD N Depression/ depression N Hepatitis N Heart Disease N Pulmonary Embolism N Tourette Syndrome N Pre-Eclampsia N Hypertension N Chronic Ear Infections N Osteoporosis N Chicken Pox N Autism Spectrum Disorder (ASD) N Thrombophilias N Immunizations Vaccine Type Date Status Note Provider Nam e and Address Organization Details Recorded Time MMR 2000 completed Malia Gilberto [employer] [place] [employer] 09/02/2023 08:47:18 Hep B, adolescent or pediatric 2000 completed Malia [place] [employer] 09/02/2023 08:47:18 Past Encounters Encounter ID Performer Location Encounter Start Date Encounter Closed Date Diagnosis/Indication Diagnosis SNOMED-CT Code Diagnosis ICD10 Code Diagnosis Note [id number] Linda [address] [address] 10/08/2024 12:54:06 10/08/2024 13:55:15 Syncope 936943572 R55 Fatigue 48240203 R53.83 Mixed hyperlipidemia 267 348264 E78.2 Vitamin D deficiency 347 28604 E55.9 Cobalamin deficiency 190 126732 E53.8 Iron defic iency anemia 93376386 D50.9 Body mass index 30+ - obesity 148765396 Z68.32 Health Concerns Section Related Observation LastModified by Organization Detai ls LastModified Time None Recorded Concern Status LastModified by Organization Details LastModified Time None Recorded Payers Encounter Date Sequence Insurance Name Policy Number Policy Pulido Covered Member ID Pulido Member ID Guarantor Name 10/08/2024 1 [place] [id number] David Thakkar [id number] David Thakkar Notes Date Note Type Note Provider Name and Address Organization Details Recorded Time 10/08/2024 text/html pt here today fo r a release to go back to work. pt states that he got dizzy yesterday and had a syncopal episode. states that he seen a provider at work and they checked his glucose, which was okay, done a EKG, which was NSR, and checked his bp which was slightly elevated, sbp 140s. pt denies any of those symptoms today and states that he feels fine . 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 pt states that he thinks he was dehydrated. assessment WNL. i will draw labs today. pt to come back on to recheck bp. Linda Galindo APRN [address] [facility], [place], [address], [facility] [employer] 10/08/2024 14:16:07
--- OUTSIDE RECORDS SUMMARY | 2024-10-29 10:42 | XMS_ITS | Clinical Summary ---
Author Organization [employer] [facility] [employer] Address [address] [place] [address] Care Team Providers Care Sanitation Director Name Role Phone Unavailable Primary Care Provider [...] Date Gaurav rded Speak language other than Surinamese at home Not on file 09/12/2023 Want [...]
--- OUTSIDE RECORDS SUMMARY | 2024-10-29 10:42 | XMS_ITS | Continuity of Care Document ---
Author Organization [employer], [facility] Address [address] [place] [address] Assessment No assessment recorded. Plan of Treatment Reminders Order Date Submit Date Provider Last Modified By Organization Details Last Modified Time Details Appointments None recorded. Lab None recorded. Referral cardiologis t referral - [facility] [address] [facility], [address], [place], [address], 5 08:32:27 Procedures None recorded. Surgeries None recorded. Imaging None recorded. Medication Orders None recorded. Patient TargetsNo targets recorded. Patient InstructionsNo instructions recorded. 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 Procedure Notes None recorded. Medical Equipment None Reported. Allergies Allergen ID Allergen Name Allergen Category Reaction Reaction Severity Criticality Documentation Date Start Date Code Code System Note Provider Name and Address Organization Details Recorded Time 96805 Substance with sulfonami de structure and antibacte rial mechanism of action (substanc e) medicatio n anaphylax is Not available Not available 09/02/2023 65775 8003 SNOMED Malia leonard [employer] 4 08:41:43 Medications Name Sig Start Date [...] oximetry Systolic blood pressure Diastolic blood pressure Provider Name and Address Organization Details Last Updated DateTime 5 170.18 cm 32.3 kg/m2 46606.8 3 g 85 /min 98 % 98 % 133 mm[Hg] 86 mm[Hg] Keke Hadley [employer]. 5 08:54:09 Social History Question Answer Notes LastModified by Organizat ion Details LastModified Time Tobacco Smoking Status Never Smoker Malia leonard, [employer]. 09/02/2023 08:43:21 Do You Have An Advance Directive? No Information not available 09/02/2023 Is Your Home Air Conditioned? Yes Information not available 09/02/2023 How Many Years Have You Consumed Alcohol? 6 Information not available 09/02/2023 Do You Wear A Helmet When Biking? No Information not available 10/13/2024 Are You Blind [...] Type Of Diet Are You Following? REGULAR [email or web address] Information not available 10/13/2024 Who Is Your Employer? [employer] Information not available 09/02/2023 Are There Any Guns Present In Your Home? Yes Information not available 09/02/2023 Which Of Your Hands Is Dominant? Right Information not available 09/02/2023 Where Do You Live? [place] Information not available 09/02/2023 Do You Have A Medical Power Of Security Project Manager? No Information not available 09/02/2023 What Was The Date Of Your Most Recent Tobacco Screening? 10/13/2024 Information not available 10/13/2024 Have You Ever [...] Do You Participate In Social Media? Yes [email or web address] Information not available 10/13/2024 Do You Use Sunscreen Routinely? Yes Information not available 09/02/2023 Have You Recently Traveled Abroad? No Information not available 09/02/2023 Do You Have Difficulty Walking Or Climbing Stairs? No Information not available 09/02/2023 Are You Currently In School? No Information not available 09/02/2023 Do You Have Any Dietary Restrictions? No [email or web address] Information not available 10/13/2024 Sex: Male Functional [...] anxious, or unable to sleep at night)? [id number] [email or web address] Information not available 10/13/2024 Do you have difficulty concentrating, remembering or making decisions? No Information no t available 09/02/2023 Family History Relationship Description Onset Age of this Age Resolved Age Notes LastModified by Organization Details LastModified Time Father Hypertensive disorder Not available 2023 08:41:43 Medical History Condition Response Coronary Artery Disease N Other N Gout N Blood Diseases N Kidney Stones N Hyperthyroidism N Blood Transfusion N Breast Cancer N Emergency room visit since last appointm ent. N Lung Disease N COPD N Depression N Dermatologic Disorders N Hypothyroidism N Defects or Inherited Disease N Developmental [...] Condition N Organ Transplant N Dialysis N Schizophrenia N Fibromyalgia N Headaches N Kidney Disease N Allergies/Hayfever N Heart Problems N Ear or Hearing Problems N Hospitalizations N Learning Disorder N Artificial Joints N Thyroid Problems N GI Problems N Acne N ADD/ADHD N Eating Disorder N Anemia N Constipation N Mental Illness N Diabetes N Ovarian Cancer N Bedwetting N Hepatitis/Liver Disease N Tuberculosis N Eczema N Abuse/Domestic Violence N Diverticulitis N Asthma N Trauma/Violence N Substance Abuse N Reflux/GERD N Depression/ depression N Hepatitis N Heart Disease N Pulmonary Embolism N Tourette Syndrome N Chronic Ear Infections N Pre-Eclampsia N Hypertension N Chicken Pox N Autism Spectrum Disorder (ASD) N Osteoporosis N Thrombophilias N Immunizations Vaccine Type Date Status Note Provider Nam e and Address Organization Details Recorded Time MMR 2000 completed Malia Gilberto [facility] [employer] [facility] 09/02/2023 08:47:18 Hep B, adolescent or pediatric [facility] [employer] 09/02/2023 08:47:18 Past Encounters Encounter ID Performer Location Encounter Start Date Encounter Closed Date Diagnosis/Indication Diagnosis SNOMED-CT Code Diagnosis ICD10 Code Diagnosis Note [id number] [place] [id number] 0 10/08/2024 12:54:06 10/08/2024 13:55:15 Syncope 122540567 R55 Fatigue 21711899 R53.83 Mixed hyperlipidemia 267 045175 E78.2 Vitamin D deficiency 347 02420 E55.9 Cobalamin deficiency 190 385747 E53.8 Iron defic iency anemia 00321796 D50.9 Body mass index 30+ - obesity 705894058 Z68.32 [id number] Linda Mateo [place] [id number] 0 10/13/2024 08:46:48 10/13/2024 09:12:09 Dizziness 623937771 R42 Body mass index 30+ - obesity 376632401 Z68.32 Health Concerns Section Related Observation LastModified by Organization Detai ls LastModified Time None Recorded Concern Status LastModified by Organization Details LastModified Time None Recorded Payers Encounter Date Sequence Insurance Name Policy Number Policy Pulido Covered Member ID Pulido Member ID Guarantor Name 10/13/2024 Ailyn CHADWICK [employer] [id number] David Thakkar [id number] David Thakkar Notes Date Note Type Note Provider Name and Address Organization Details Recorded Time 10/13/2024 text/html pt here today for recheck of bp. bp is WNL. pt states that he hasnt been checking his bp at home but dotty he was outside and his son was helping him and he had to sit down and have his son do the rest of the work because he got light headed . and then yesterday he went to [place] to pickle solution maker a door and he brought it home and he got light headed and soa. pt denies these symptoms today. i am going to refer to cardio for further evaluation. Linda Galindo APRN [address] [facility], [place], [address], [facility] [employer] 10/13/2024 09:08:50
--- OUTSIDE RECORDS SUMMARY | 2024-10-29 10:42 | XMS_ITS | Referral Summary ---
Author Organization [employer] Address [address] [place] [address] Care Team Providers Care Construction Engineering Manager Name Role Phone Unavailable Primary Care Provider [...] Date Gaurav rded Speak language other than Mongolian at home Not on file 09/12/2023 Want [...]
--- OUTSIDE RECORDS SUMMARY | 2024-10-29 10:42 | XMS_ITS | Clinical Summary ---
Author Organization [facility] Address [address] [place] [address] Care Team Providers Care Cook Chief Name Role Phone Sanjiv Gordon MD Primary Care Provider + [phone] Allergies Active Allergy Reactions Criticality Noted Date [...] Td Vaccine s (1 - Tdap) 12/14/2007 [id number] Vaccine (1 - 20 24-25 season) 2024 [...] age to complete this topic [place] [address] Care Teams Cook Chief Relationship Specialty Start Date End Date Sanjiv Gordon MD [address] [facility] [address] [place] [address] PCP - General 09/16/20
--- OUTSIDE RECORDS SUMMARY | 2024-10-29 10:42 | XMS_ITS | Data Portability ---
Author Organization [place] Address [address] [place] [address] Assessment No assessment recorded. Plan of Treatment Reminders Order Date Submit Date Provider Last Modified By Organization Details Last Modified Time Details Appointments None recorded. Lab lipid panel, serum 2024 025 [facility], [address] [place], [address], 5 08:09:12 CBC w/ auto diff 2024 025 [facility]), [address] [place], [address], 5 08:09:11 CMP, serum or plasma 2024 025 [facility], [address] [place], [address], 5 08:09:12 TSH + free T4, serum 2024 025 [facility]), [address] [place], [address], 5 08:09:11 magnesium, serum or plasma 2024 025 [facility]), [address] [place], [address], 5 08:09:14 vitamin D, 25-hydroxy, total, serum 2024 025 [facility]), [address] [place], [address], 5 08:09:14 iron + TIBC + ferritin, serum 2024 025 [facility]), [address] [place], [address], 5 08:09:10 cobalamin and folate panel, serum 2024 025 [facility]), [address] [place], [address], 5 08:09:13 amylase + lipase, serum 2024 025 [facility]), [address] [place], [address], 5 08:12:56 lipid panel, serum 2024 025 [facility]), [address] [place], [address], 5 08:12:55 CBC w/ auto diff 2024 025 [facility] [address] [place], [address], 5 08:12:54 CMP, serum or plasma 2024 025 [facility]), [address] [place], [address], 5 08:12:55 TSH + free T4, serum 2024 025 [facility]), [address] [place], [address], 5 08:12:54 HbA1c (hemoglobin A1c), blood 2024 025 [facility]), [address] [place] [address], [address], 5 08:12:57 cobalamin and folate panel, serum 2024 025 [facility] [address] [place], [address], 5 08:12:56 vitamin D, 25-hydroxy, total, serum 2024 025 [facility]), [address] [place], [address], 5 08:12:57 Referral cardiologis t referral - [facility] [address] [facility], [address], [place], [address], 5 08:32:27 orthopedic surgeon referral - [facility] 2023 024 [facility]oving DPM, [address], [address], [place], [address], 4 09:18:32 Procedures None recorded. Surgeries None recorded. Imaging XR, chest 2024 025 [facility], [address] [place] [address], [address], 5 17:01:22 XR, abdomen [address], [address], 5 17:00:44 XR, ankle, 3 or more view 2023 024 [facility] Not available 4 11:54:29 XR, foot, 3 or more view 2023 024 [facility] Not available 4 11:55:20 Medication Orders None recorded. Patient TargetsNo targets recorded. Patient InstructionsNo instructions recorded. Reason for Referral Orthopedic Surgeon Referral for Pain of right ankle joint MELVIN Referring Physician: Linda Galindo [facility], Encounter Date: 09/12/2023 [place] Referral for Di josh MELVIN Referring Physician: Linda Galindo [facility], Encounter Date: 10/13/2024 Results Created Date Observation Date Name Description Value Unit Range Abnormal Flag Note LastModifiedBy Organization Detail LastModifiedTime 07/28/1907/28/2024 TSH+F REE T4 TSH 1.260 uIU/m L 0.450- 4.500 normal Not Available [facility] ([facility]) [address] [place], [address], 07/28/2024 08:12:54 07/28/1907/28/2024 TSH+F REE T4 T4,free(dire ct) 1.18 NG/dL 0.82-1 .77 normal Not Available [facility] ([facility]) [address] [place], [address], 07/28/2024 08:12:54 07/28/1907/28/2024 CBC WITH DIFFE RENTI AL/PL ATELE T WBC 7.2 x10e3 /uL 3.4-10 .8 normal Not Available [facility] ([facility]) [address] [place], [address], 07/28/2024 08:12:54 07/28/1907/28/2024 CBC WITH DIFFE RENTI AL/PL ATELE T RBC 5.59 x10e6 /uL 4.14-5 .80 normal Not Available [facility] ([facility]) [address] [place], [address], 07/28/2024 08:12:54 07/28/1907/28/2024 CBC WITH DIFFE RENTI AL/PL ATELE T hemoglobin 16.7 g/dL 13.0-1 7.7 normal Not Available [facility] ([facility]) [address] [place], [address], 07/28/2024 08:12:54 07/28/1907/28/2024 CBC WITH DIFFE RENTI AL/PL ATELE T hematocrit 49.3 % 37.5-5 1.0 normal Not Available [facility] ([facility]) [address] [place], [address], 07/28/2024 08:12:54 07/28/1907/28/2024 CBC WITH DIFFE RENTI AL/PL ATELE T MCV 88 fL 79-97 normal Not Available [facility] ([facility]) [address] [place], [address], 07/28/2024 08:12:54 07/28/1907/28/2024 CBC WITH DIFFE RENTI AL/PL ATELE T MCH 29.9 pg 26.6-3 3.0 normal Not Available [facility] ([facility]) [address] [place], [address], 07/28/2024 08:12:54 07/28/1907/28/2024 CBC WITH DIFFE RENTI AL/PL ATELE T MCHC 33.9 g/dL 31.5-3 5.7 normal Not Available [facility] ([facility]) [address] [place], [address], 07/28/2024 08:12:54 07/28/1907/28/2024 CBC WITH DIFFE RENTI AL/PL ATELE T RDW 13.0 % 11.6-1 5.4 Not Available [facility] ([facility]) [address] [place], [address], 07/28/2024 08:12:54 07/28/1907/28/2024 CBC WITH DIFFE RENTI AL/PL ATELE T platelets 266 x10e3 /uL 150-45 0 normal Not Available [facility] ([facility]) [address] [place], [address], 07/28/2024 08:12:54 07/28/1907/28/2024 CBC WITH DIFFE RENTI AL/PL ATELE T neutrophils 52 % not estab. normal Not Available [facility] ([facility]) [address], [place], [address], 07/28/2024 08:12:54 07/28/1907/28/2024 CBC WITH DIFFE RENTI AL/PL ATELE T lymphs 29 % not estab. normal Not Available [facility] ([facility]) [address], [place], [address], 07/28/2024 08:12:54 07/28/1907/28/2024 CBC WITH DIFFE RENTI AL/PL ATELE T monocytes 8 % not estab. normal Not Available [facility] ([facility]) [address], [place], [address], 07/28/2024 08:12:54 07/28/1907/28/2024 CBC WITH DIFFE RENTI AL/PL ATELE T eos 10 % not estab. normal Not Available [facility] ([facility]) [address], [place], [address], 07/28/2024 08:12:54 07/28/1907/28/2024 CBC WITH DIFFE RENTI AL/PL ATELE T basos 1 % not estab. normal Not Available [facility] ([facility]) [address], [place], [address], 07/28/2024 08:12:54 07/28/1907/28/2024 CBC WITH DIFFE RENTI AL/PL ATELE T immature cells DRY SANDER Not Available [facility] ([facility]) [address], [place], [address], 07/28/2024 08:12:54 07/28/1907/28/2024 CBC WITH DIFFE RENTI AL/PL ATELE T neutrophils (absolute) 3.7 x10e3 /uL 1.4-7. 0 normal Not Available [facility] ([facility]) [address] [place], [address], 07/28/2024 08:12:54 07/28/1907/28/2024 CBC WITH DIFFE RENTI AL/PL ATELE T lymphs (absolute) 2.1 x10e3 /uL 0.7-3. 1 normal Not Available [facility] ([facility]) [address] [place], [address], 07/28/2024 08:12:54 07/28/1907/28/2024 CBC WITH DIFFE RENTI AL/PL ATELE T monocytes(ab solute) 0.6 x10e3 /uL 0.1-0. 9 normal Not Available [facility] ([facility]) [address], [place], [address], 07/28/2024 08:12:54 07/28/1907/28/2024 CBC WITH DIFFE RENTI AL/PL ATELE T eos (absolute) 0.7 x10e3 /uL 0.0-0. 4 above high normal Not Available [facility] ([facility]) [address] [place], [address], 07/28/2024 08:12:54 07/28/1907/28/2024 CBC WITH DIFFE RENTI AL/PL ATELE T baso (absolute) 0.1 x10e3 /uL 0.0-0. 2 normal Not Available [facility] ([facility]) [address] [place], [address], 07/28/2024 08:12:54 07/28/1907/28/2024 CBC WITH DIFFE RENTI AL/PL ATELE T immature granulocytes 0 % not estab. Not Available [facility] ([facility]) [address] [place], [address], 07/28/2024 08:12:54 07/28/1907/28/2024 CBC WITH DIFFE RENTI AL/PL ATELE T immature grans (abs) 0.0 x10e3 /uL 0.0-0. 1 Not Available [facility] ([facility]) [address], [place], [address], 07/28/2024 08:12:54 07/28/1907/28/2024 CBC WITH DIFFE RENTI AL/PL ATELE T NRBC DRY SANDER Not Available [facility] ([facility]) [address], [place], [address], 07/28/2024 08:12:54 07/28/1907/28/2024 CBC WITH DIFFE RENTI AL/PL ATELE T hematology comments: DRY SANDER Not Available [facility] ([facility]) [address], [place], [address], 07/28/2024 08:12:54 07/28/1907/28/2024 COMP. METAB OLIC PANEL (14) glucose 71 mg/dL 70-99 normal Not Available [facility] ([facility]) [address], [place], [address], 07/28/2024 08:12:55 07/28/1907/28/2024 COMP. METAB OLIC PANEL (14) BUN 16 mg/dL 6-20 normal Not Available [facility] ([facility]) [address], [place], [address], 07/28/2024 08:12:55 07/28/1907/28/2024 COMP. METAB OLIC PANEL (14) creatinine 1.08 mg/dL 0.76-1 .27 normal Not Available [facility] ([facility]) [address], [place], [address], 07/28/2024 08:12:55 07/28/1907/28/2024 COMP. METAB OLIC PANEL (14) eGFR 92 mL/mi n/1.7 3 >59 normal Not Available [facility] ([facility]) [address] [place], [address], 07/28/2024 08:12:55 07/28/19 25 07/28/2024 COMP. METAB OLIC PANEL (14) BUN/creatini ne ratio 15 9-20 normal Not Available [facility] ([facility]) [address] [place], [address], 07/28/2024 08:12:55 07/28/19 25 07/28/2024 COMP. METAB OLIC PANEL (14) sodium 142 mmol/ L 134-14 4 normal Not Available [facility] ([facility]) [address] [place], [address], 07/28/2024 08:12:55 07/28/19 25 07/28/2024 COMP. METAB OLIC PANEL (14) potassium 4.2 mmol/ L 3.5-5. 2 normal Not Available [facility] ([facility]) [address] [place], [address], 07/28/2024 08:12:55 07/28/19 25 07/28/2024 COMP. METAB OLIC PANEL (14) chloride 107 mmol/ L 96-106 above high normal Not Available [facility] ([facility]) [address] [place], [address], 07/28/2024 08:12:55 07/28/19 25 07/28/2024 COMP. METAB OLIC PANEL (14) carbon dioxide, total 22 mmol/ L 20-29 normal Not Available [facility] ([facility]) [address] [place], [address], 07/28/2024 08:12:55 07/28/19 25 07/28/2024 COMP. METAB OLIC PANEL (14) calcium 9.6 mg/dL 8.7-10 .2 normal Not Available [facility] ([facility]) [address] [place], [address], 07/28/2024 08:12:55 07/28/1907/28/2024 COMP. METAB OLIC PANEL (14) protein, total 7.1 g/dL 6.0-8. 5 normal Not Available [facility] ([facility]) [address] [place], [address], 07/28/2024 08:12:55 07/28/1907/28/2024 COMP. METAB OLIC PANEL (14) albumin 4.5 g/dL 4.1-5. 1 normal Not Available [facility] ([facility]) [address] [place], [address], 07/28/2024 08:12:55 07/28/1907/28/2024 COMP. METAB OLIC PANEL (14) globulin, total 2.6 g/dL 1.5-4. 5 Not Available [facility] ([facility]) [address] [place], [address], 07/28/2024 08:12:55 07/28/1907/28/2024 COMP. METAB OLIC PANEL (14) bilirubin, total 0.5 mg/dL 0.0-1. 2 normal Not Available [facility] ([facility]) [address] [place], [address], 07/28/2024 08:12:55 07/28/1907/28/2024 COMP. METAB OLIC PANEL (14) alkaline phosphatase 72 IU/L 44-121 normal Not Available [facility] ([facility]) [address] [place], [address], 07/28/2024 08:12:55 07/28/19 25 07/28/2024 COMP. METAB OLIC PANEL (14) AST (SGOT) 20 IU/L 0-40 normal Not Available [facility] ([facility]) [address] [place], [address], 07/28/2024 08:12:55 07/28/1907/28/2024 COMP. METAB OLIC PANEL (14) ALT (SGPT) 27 IU/L 0-44 normal Not Available [facility] ([facility]) [address] [place], [address], 07/28/2024 08:12:55 07/28/1907/28/2024 LIPID PANEL cholesterol, total 256 mg/dL 100-19 9 above high normal Not Available [facility] ([facility]) [address] [place], [address], 07/28/2024 08:12:55 07/28/1907/28/2024 LIPID PANEL triglyceride s 253 mg/dL 0-149 above high normal Not Available [facility] ([facility]) [address] [place], [address], 07/28/2024 08:12:55 07/28/1907/28/2024 LIPID PANEL HDL cholesterol 48 mg/dL >39 normal Not Available [facility]) [address] [place], [address], 07/28/2024 08:12:55 07/28/1907/28/2024 LIPID PANEL VLDL cholesterol emron 47 mg/dL 5-40 above high normal Not Available [facility] ([facility]) [address] [place], [address], 07/28/2024 08:12:55 07/28/1907/28/2024 LIPID PANEL LDL chol calc ([facility]) 161 mg/dL 0-99 above high normal Not Available [facility] ([facility]) [address] [place], [address], 07/28/2024 08:12:55 07/28/19 25 07/28/2024 LIPID PANEL LDL calc comment: DRY SANDER Not Available [facility] ([facility]) [address], [place], [address], 07/28/2024 08:12:55 07/28/1907/28/2024 VITAM IN B12 AND FOLAT E vitamin B12 474 pg/mL 232-12 45 normal Not Available [facility] ([facility]) [address] [place], [address], 07/28/2024 08:12:56 07/28/1907/28/2024 VITAM IN B12 AND FOLAT E folate (folic acid), serum 4.8 NG/mL >3.0 normal A serum folat e jayce ntrat ion of less than 3.1 ng/mL is consi dered to repre sent clini meron defic iency . Not Available [facility] ([facility]) [address], [place], [address], 07/28/2024 08:12:56 07/28/1907/28/2024 RAN+L IPASE amylase 104 U/L 31-110 normal Not Available [facility] ([facility]) [address] [place], [address], 07/28/2024 08:12:56 07/28/1907/28/2024 RAN+L IPASE lipase 33 U/L 13-78 normal Not Available [facility] ([facility]) [address] [place], [address], 07/28/2024 08:12:56 07/28/1907/28/2024 HEMOG LOBIN A1C hemoglobin A1C 5.2 % 4.8-5. 6 normal Predi abete s: 5.7 - 6.4 Diabe petra: >6.4 Glyce demario contr ol for adult s with diabe petra: <7.0 Not Available [facility] ([facility]) [address] [place], [address], 07/28/2024 08:12:57 07/28/19 25 07/28/2024 VITAM IN D, 25-HY DROXY vitamin D, 25-hydroxy 16.0 NG/mL 30.0-1 00.0 below low normal Vitam in D defic iency has been defin ed by the Insti tute of Medic ine and an Endoc rine Socie ty pract ice guide line as a level of serum 25-OH vitam in D less than 20 ng/mL (1,2) . The Endoc rine Socie ty went on to furth er defin e vitam in D insuf ficie ncy as a level betwe en 21 and 29 ng/mL (2). 1. IOM (Inst itute of Medic ine). 2010. Dieta ry refer ence annia es for calci um and D. Naheed still [place]: [facility] . 2. Les jaeger [place], Karol duke [place], Princess off-F errar i PETER, et al. Evalu ation , treat ment, and preve ntion of vitam in D defic iency : an Endoc rine Socie ty clini meron pract ice guide line. JCEM. 2010; 96(7) :1911 -30. Not Available [facility] ([facility]) [address] [place], [address], 07/28/2024 08:12:57 10/09/19 25 10/09/2024 FE+TI BC+FE R iron bind.cap.(TI BC) 363 ug/dL 250-45 0 normal Not Available [facility] ([facility]) [address] [place], [address], 10/09/2024 08:09:10 10/09/19 25 10/09/2024 FE+TI BC+FE R UIBC 246 ug/dL 111-34 3 normal Not Available [facility] ([facility]) [address] [place], [address], 10/09/2024 08:09:10 10/09/19 25 10/09/2024 FE+TI BC+FE R iron 117 ug/dL 38-169 normal Not Available [facility] ([facility]) [address] [place], [address], 10/09/2024 08:09:10 10/09/19 25 10/09/2024 FE+TI BC+FE R iron saturation 32 % 15-55 normal Not Available [facility]) [address] [place], [address], 10/09/2024 08:09:10 10/09/19 25 10/09/2024 FE+TI BC+FE R ferritin 393 NG/mL 30-400 normal Not Available [facility] ([facility]) [address] [place], [address], 10/09/2024 08:09:10 10/09/19 25 10/09/2024 TSH+F REE T4 TSH 0.929 uIU/m L 0.450- 4.500 normal Not Available [facility] ([facility]) [address] [place], [address], 10/09/2024 08:09:11 10/09/1910/09/2024 TSH+F REE T4 T4,free(dire ct) 1.03 NG/dL 0.82-1 .77 normal Not Available [facility] ([facility]) [address] [place], [address], 10/09/2024 08:09:11 10/09/1910/09/2024 CBC WITH DIFFE RENTI AL/PL ATELE T WBC 6.0 x10e3 /uL 3.4-10 .8 normal Not Available [facility] ([facility]) [address] [place], [address], 10/09/2024 08:09:11 10/09/19 25 10/09/2024 CBC WITH DIFFE RENTI AL/PL ATELE T RBC 5.33 x10e6 /uL 4.14-5 .80 normal Not Available [facility] ([facility]) [address] [place], [address], 10/09/2024 08:09:11 10/09/19 25 10/09/2024 CBC WITH DIFFE RENTI AL/PL ATELE T hemoglobin 16.6 g/dL 13.0-1 7.7 normal Not Available [facility] ([facility]) [address] [place], [address], 10/09/2024 08:09:11 10/09/19 25 10/09/2024 CBC WITH DIFFE RENTI AL/PL ATELE T hematocrit 49.8 % 37.5-5 1.0 normal Not Available [facility] ([facility]) [address], [place], [address], 10/09/2024 08:09:11 10/09/19 25 10/09/2024 CBC WITH DIFFE RENTI AL/PL ATELE T MCV 93 fL 79-97 normal Not Available [facility] ([facility]) [address] [place], [address], 10/09/2024 08:09:11 10/09/19 25 10/09/2024 CBC WITH DIFFE RENTI AL/PL ATELE T MCH 31.1 pg 26.6-3 3.0 normal Not Available [facility] ([facility]) [address] [place], [address], 10/09/2024 08:09:11 10/09/1910/09/2024 CBC WITH DIFFE RENTI AL/PL ATELE T MCHC 33.3 g/dL 31.5-3 5.7 normal Not Available [facility] ([facility]) [address] [place], [address], 10/09/2024 08:09:11 10/09/19 25 10/09/2024 CBC WITH DIFFE RENTI AL/PL ATELE T RDW 13.2 % 11.6-1 5.4 Not Available [facility] ([facility]) [address], [place], [address], 10/09/2024 08:09:11 10/09/19 25 10/09/2024 CBC WITH DIFFE RENTI AL/PL ATELE T platelets 254 x10e3 /uL 150-45 0 normal Not Available [facility] ([facility]) [address], [place], [address], 10/09/2024 08:09:11 10/09/19 25 10/09/2024 CBC WITH DIFFE RENTI AL/PL ATELE T neutrophils 53 % not estab. normal Not Available [facility] ([facility]) [address], [place], [address], 10/09/2024 08:09:11 10/09/19 25 10/09/2024 CBC WITH DIFFE RENTI AL/PL ATELE T lymphs 31 % not estab. normal Not Available [facility] ([facility]) [address], [place], [address], 10/09/2024 08:09:11 10/09/19 25 10/09/2024 CBC WITH DIFFE RENTI AL/PL ATELE T monocytes 7 % not estab. normal Not Available [facility] ([facility]) [address], [place], [address], 10/09/2024 08:09:11 10/09/19 25 10/09/2024 CBC WITH DIFFE RENTI AL/PL ATELE T eos 8 % not estab. normal Not Available [facility] ([facility]) [address], [place], [address], 10/09/2024 08:09:11 10/09/19 25 10/09/2024 CBC WITH DIFFE RENTI AL/PL ATELE T basos 1 % not estab. normal Not Available [facility] ([facility]) [address], [place], [address], 10/09/2024 08:09:11 10/09/19 25 10/09/2024 CBC WITH DIFFE RENTI AL/PL ATELE T immature cells DRY SANDER Not Available [facility] ([facility]) [address] [place], [address], 10/09/2024 08:09:11 10/09/19 25 10/09/2024 CBC WITH DIFFE RENTI AL/PL ATELE T neutrophils (absolute) 3.2 x10e3 /uL 1.4-7. 0 normal Not Available [facility] ([facility]) [address] [place], [address], 10/09/2024 08:09:11 10/09/19 25 10/09/2024 CBC WITH DIFFE RENTI AL/PL ATELE T lymphs (absolute) 1.9 x10e3 /uL 0.7-3. 1 normal Not Available [facility] ([facility]) [address] [place], [address], 10/09/2024 08:09:11 10/09/19 25 10/09/2024 CBC WITH DIFFE RENTI AL/PL ATELE T monocytes(ab solute) 0.4 x10e3 /uL 0.1-0. 9 normal Not Available [facility] ([facility]) [address] [place], [address], 10/09/2024 08:09:11 10/09/19 25 10/09/2024 CBC WITH DIFFE RENTI AL/PL ATELE T eos (absolute) 0.5 x10e3 /uL 0.0-0. 4 above high normal Not Available [facility] ([facility]) [address] [place], [address], 10/09/2024 08:09:11 10/09/19 25 10/09/2024 CBC WITH DIFFE RENTI AL/PL ATELE T baso (absolute) 0.1 x10e3 /uL 0.0-0. 2 normal Not Available [facility] ([facility]) [address], [place], [address], 10/09/2024 08:09:11 10/09/19 25 10/09/2024 CBC WITH DIFFE RENTI AL/PL ATELE T immature granulocytes 0 % not estab. Not Available [facility] ([facility]) [address], [place], [address], 10/09/2024 08:09:11 10/09/19 25 10/09/2024 CBC WITH DIFFE RENTI AL/PL ATELE T immature grans (abs) 0.0 x10e3 /uL 0.0-0. 1 Not Available [facility] ([facility]) [address], [place], [address], 10/09/2024 08:09:11 10/09/19 25 10/09/2024 CBC WITH DIFFE RENTI AL/PL ATELE T NRBC DRY SANDER Not Available [facility] ([facility]) [address], [place], [address], 10/09/2024 08:09:11 10/09/19 25 10/09/2024 CBC WITH DIFFE RENTI AL/PL ATELE T hematology comments: DRY SANDER Not Available [facility] ([facility]) [address], [place], [address], 10/09/2024 08:09:11 10/09/19 25 10/09/2024 COMP. METAB OLIC PANEL (14) glucose 94 mg/dL 70-99 normal Not Available [facility] ([facility]) [address] [place], [address], 10/09/2024 08:09:12 10/09/19 25 10/09/2024 COMP. METAB OLIC PANEL (14) BUN 11 mg/dL 6-20 normal Not Available [facility] ([facility]) [address] [place], [address], 10/09/2024 08:09:12 10/09/19 25 10/09/2024 COMP. METAB OLIC PANEL (14) creatinine 0.96 mg/dL 0.76-1 .27 normal Not Available [facility] ([facility]) [address], [place], [address], 10/09/2024 08:09:12 10/09/19 25 10/09/2024 COMP. METAB OLIC PANEL (14) eGFR 106 mL/mi n/1.7 3 >59 normal Not Available [facility] ([facility]) [address], [place], [address], 10/09/2024 08:09:12 10/09/19 25 10/09/2024 COMP. METAB OLIC PANEL (14) BUN/creatini ne ratio 11 9-20 normal Not Available [facility] ([facility]) [address] [place], [address], 10/09/2024 08:09:12 10/09/19 25 10/09/2024 COMP. METAB OLIC PANEL (14) sodium 138 mmol/ L 134-14 4 normal Not Available [facility] ([facility]) [address] [place], [address], 10/09/2024 08:09:12 10/09/19 25 10/09/2024 COMP. METAB OLIC PANEL (14) potassium 4.3 mmol/ L 3.5-5. 2 normal Not Available [facility] ([facility]) [address] [place], [address], 10/09/2024 08:09:12 10/09/19 25 10/09/2024 COMP. METAB OLIC PANEL (14) chloride 103 mmol/ L 96-106 normal Not Available [facility] ([facility]) [address], [place], [address], 10/09/2024 08:09:12 10/09/19 25 10/09/2024 COMP. METAB OLIC PANEL (14) carbon dioxide, total 21 mmol/ L 20-29 normal Not Available [facility] ([facility]) [address] [place], [address], 10/09/2024 08:09:12 10/09/19 25 10/09/2024 COMP. METAB OLIC PANEL (14) calcium 9.8 mg/dL 8.7-10 .2 normal Not Available [facility] ([facility]) [address] [place], [address], 10/09/2024 08:09:12 10/09/19 25 10/09/2024 COMP. METAB OLIC PANEL (14) protein, total 7.2 g/dL 6.0-8. 5 normal Not Available [facility] ([facility]) [address] [place], [address], 10/09/2024 08:09:12 10/09/19 25 10/09/2024 COMP. METAB OLIC PANEL (14) albumin 4.4 g/dL 4.1-5. 1 normal Not Available [facility] ([facility]) [address] [place], [address], 10/09/2024 08:09:12 10/09/19 25 10/09/2024 COMP. METAB OLIC PANEL (14) globulin, total 2.8 g/dL 1.5-4. 5 Not Available [facility] ([facility]) [address] [place], [address], 10/09/2024 08:09:12 10/09/19 25 10/09/2024 COMP. METAB OLIC PANEL (14) bilirubin, total 0.4 mg/dL 0.0-1. 2 normal Not Available [facility] ([facility]) [address] [place], [address], 10/09/2024 08:09:12 10/09/19 25 10/09/2024 COMP. METAB OLIC PANEL (14) alkaline phosphatase 70 IU/L 44-121 normal Not Available [facility] ([facility]) [address] [place], [address], 10/09/2024 08:09:12 10/09/19 25 10/09/2024 COMP. METAB OLIC PANEL (14) AST (SGOT) 23 IU/L 0-40 normal Not Available [facility] ([facility]) [address] [place], [address], 10/09/2024 08:09:12 10/09/19 25 10/09/2024 COMP. METAB OLIC PANEL (14) ALT (SGPT) 32 IU/L 0-44 normal Not Available [facility] ([facility]) [address] [place], [address], 10/09/2024 08:09:12 10/09/19 25 10/09/2024 LIPID PANEL cholesterol, total 240 mg/dL 100-19 9 above high normal Not Available [facility] ([facility]) [address] [place], [address], 10/09/2024 08:09:12 10/09/19 25 10/09/2024 LIPID PANEL triglyceride s 211 mg/dL 0-149 above high normal Not Available [facility] ([facility]) [address] [place], [address], 10/09/2024 08:09:12 10/09/19 25 10/09/2024 LIPID PANEL HDL cholesterol 52 mg/dL >39 normal Not Available [facility] ([facility]) [address] [place], [address], 10/09/2024 08:09:12 10/09/19 25 10/09/2024 LIPID PANEL VLDL cholesterol meron 38 mg/dL 5-40 Not Available [facility] ([facility]) [address] [place], [address], 10/09/2024 08:09:12 10/09/19 25 10/09/2024 LIPID PANEL LDL chol calc ([facility]) 150 mg/dL 0-99 above high normal Not Available [facility] ([facility]) [address], [place], [address], 10/09/2024 08:09:12 10/09/19 25 10/09/2024 LIPID PANEL LDL calc comment: DRY SANDER Not Available [facility] ([facility]) [address], [place], [address], 10/09/2024 08:09:12 10/09/19 25 10/09/2024 VITAM IN B12 AND FOLAT E vitamin B12 413 pg/mL 232-12 45 normal Not Available [facility] ([facility]) [address], [place], [address], 10/09/2024 08:09:13 10/09/19 25 10/09/2024 VITAM IN B12 AND FOLAT E folate (folic acid), serum 4.4 NG/mL >3.0 normal A serum folat e jayce ntrat ion of less than 3.1 ng/mL is consi dered to repre sent clini meron defic iency . Not Available [facility] ([facility]) [address], [place], [address], 10/09/2024 08:09:13 10/09/1910/09/2024 VITAM IN D, 25-HY DROXY vitamin D, 25-hydroxy 27.7 NG/mL 30.0-1 00.0 below low normal Vitam in D defic iency has been defin ed by the Insti tute of Medic ine and an Endoc rine Socie ty pract ice guide line as a level of serum 25-OH vitam in D less than 20 ng/mL (1,2) . The Endoc rine Socie ty went on to furth er defin e vitam in D insuf ficie ncy as a level betwe en 21 and 29 ng/mL (2). 1. IOM (Inst itute of Medic ine). 2010. Dieta ry refer ence intak es for calci um and D. Naheed still [place]: [facility] . 2. Les jaeger [place], Karol duke [place], Princess off-F aaliyah i PETER, et al. Evalu ation , treat ment, and preve ntion of vitam in D defic iency : an Endoc rine Socie ty clini meron pract ice guide line. JCEM. 2010; 96(7) :1911 -30. Not Available [facility] ([facility]) [address], [place], [address], 10/09/2024 08:09:13 10/09/19 25 10/09/2024 MAGNE SIUM magnesium 2.2 mg/dL 1.6-2. 3 normal Not Available [facility] ([facility]) [address], [place], [address], 10/09/2024 08:09:14 09/02/19 24 XR, ankle , 3 or more view No observ ation record ed. Not Available 2023 15:04:33 09/02/19 24 XR, foot, 3 or more view No observ ation record ed. Not Available 2023 15:04:34 07/28/19 25 XR, abdom en No observ ation record ed. [address], [address], 07/28/2024 10:43:17 07/28/19 25 XR, chest No observ ation record ed. [address], [address], 07/28/2024 10:43:22 Result Notes None recorded. Procedures Surgical History Date Name Laterality Status Provider Name and Address Organization Details Recorded Time Appendectomy completed Malia Macias [facility] [employer] 09/02/2023 08:41:43 Imaging Results None recorded. Procedure Notes None recorded. Medical Equipment None Reported. Allergies Allergen ID Allergen Name Allergen Category Reaction Reaction Severity Criticality Documentation Date Start Date Code Code System Note Provider Name and Address Organization Details Recorded Time 55444 Substance with sulfonami de structure and antibacte rial mechanism of action (substanc e) medicatio n anaphylax is Not available Not available 09/02/2023 27006 8003 SNOMED Malia Benzieiliana leonard [employer] [place] 4 08:41:43 Medications Name Sig Start [...] Details Last Updated DateTime 5 170.18 cm 33.2 kg/m2 47287.5 8 g 124 /min 97 % 97 % 132 mm[Hg] 82 mm[Hg] Marilyn Bangura [employer] 5 14:38:08 Date Recorded Body height Body mass index (BMI) Body weight Body temperature Heart rate Oxygen saturation Oxygen saturation in Arterial blood by Pulse oximetry Systolic blood pressure Diastolic blood pressure Systolic blood pressure Diastolic blood pressure Systolic blood pressure Diastolic blood pressure Provider Name and Address Organization Details Last Updated DateTime 4 170.18 cm 30.8 kg/m2 66484.2 6 g 97.6 [degF] 63 /min 98 % 98 % 146 mm[Hg] 97 mm[Hg] 146 mm[Hg] 93 mm[Hg] 125 mm[Hg] 85 mm[Hg] Malia Gilberto [employer] 4 08:48:14 Date Recorded Body height Body mass index (BMI) Body weight Heart rate Oxygen saturation Oxygen saturation in Arterial blood by Pulse oximetry Systolic blood pressure Diastolic blood pressure Provider Name and Address Organization Details Last Updated DateTime 4 170.18 cm 31.9 kg/m2 48922.3 5 g 83 /min 98 % 98 % 122 mm[Hg] 81 mm[Hg] Marilyn Bangura [employer] 4 14:00:44 Date Recorded Body height Body mass index (BMI) Body weight Heart rate Oxygen saturation Oxygen saturation in Arterial blood by Pulse oximetry Systolic blood pressure Diastolic blood pressure Systolic blood pressure Diastolic blood pressure Provider Name and Address Organization Details Last Updated DateTime 5 170.18 cm 32.3 kg/m2 66045.0 3 g 87 /min 97 % 97 % 147 mm[Hg] 87 mm[Hg] 134 mm[Hg] 88 mm[Hg] Marilyn Bangura [employer] 5 13:24:49 Date Recorded Body height Body mass index (BMI) Body weight Heart rate Oxygen saturation Oxygen saturation in Arterial blood by Pulse oximetry Systolic blood pressure Diastolic blood pressure Provider Name and Address Organization Details Last Updated DateTime 5 170.18 cm 32.3 kg/m2 41275.8 3 g 85 /min 98 % 98 % 133 mm[Hg] 86 mm[Hg] Keke Hadley [employer] 5 08:54:09 Social History Question Answer Notes LastModified by Organizat ion Details LastModified Time Tobacco Smoking Status Never Smoker Malia leonrad [employer] 09/02/2023 08:43:21 Do You Have An Advance Directive? No Information not available 09/02/2023 Is Your Home Air Conditioned? Yes Information not available 09/02/2023 How Many Years Have You Consumed Alcohol? 6 Information not available 09/02/2023 Do You Wear A Helmet When Biking? No [email or web address] Information not available 10/13/2024 Are You Blind [...] Type Of Diet Are You Following? REGULAR Information not available 10/13/2024 Who Is Your Employer? [email or web address] Information not available 09/02/2023 Are There Any Guns Present In Your Home? Yes Information not available 09/02/2023 Which Of Your Hands Is Dominant? Right Information not available 09/02/2023 Where Do You Live? SingleLevelHouse Information not available 09/02/2023 Do You Have A Medical Power Of Tile Layer Drainage? No Information not available 09/02/2023 What Was The Date Of Your Most Recent Tobacco Screening? 10/13/2024 [email or web address] Information not available 10/13/2024 Have You Ever [...] Do You Participate In Social Media? Yes [email or web address] Information not available 10/13/2024 Do You Use Sunscreen Routinely? Yes Information not available 09/02/2023 Have You Recently Traveled Abroad? No Information not available 09/02/2023 Do You Have Difficulty Walking Or Climbing Stairs? No Information not available 09/02/2023 Are You Currently In School? No Information not available 09/02/2023 Do You Have Any Dietary Restrictions? No [email or web address] Information not available 10/13/2024 Sex: Male Functional [...] anxious, or unable to sleep at night)? [id number] Information not available 10/13/2024 Do you have [...] Stones N Blood Diseases N Hyperthyroidism N Blood Transfusion N Breast Cancer N Emergency room visit since last appointm ent. N COPD N Depression N Dermatologic Disorders N Lung Disease N Hypothyroidism N Developmental or Behavioral Disorders N Defects or Inherited Disease N Breast Problem N Difficulty Swallowing N Anesthesia Complications N History of STI N Anxiety Disorder N Meniere's disease N Autoimmune disease N Muscle, Joint, or Bone Problems N Vision or Eye Problems N Arthritis N Infertility N Polyps N Mental Disorder N Congenital Anomalies N Acid Reflux (GERD) N Cancer N Stroke N Neurologic/Epilepsy N Endometriosis N Bladder or Kidney Problems N High Cholesterol N Liver Disease N Psychiatric/Mental Health Condition N Organ Transplant N Fibromyalgia N Headaches N Schizophrenia N Dialysis N Kidney Disease N Allergies/Hayfever N Heart [...] Organization Details Recorded Time MMR 2000 completed [facility] 09/02/2023 08:47:18 [facility] B, adolescent or pediatric [facility] [employer] 09/02/2023 08:47:18 Past Encounters Encounter ID Performer Location Encounter Start Date Encounter Closed Date Diagnosis/Indication Diagnosis SNOMED-CT Code Diagnosis ICD10 Code Diagnosis Note [id number] Linda Galindo [address] [address] 09/02/2023 08:37:43 09/02/2023 09:03:34 Pain of right ankle joint 9724954333 4880786 M25.571 Pain in right foot 68786 41227 44737 M79.671 Body mass index 30+ - obesity 482715075 Z68.30 [id number] Linda Galindo [place] [address] 0 09/12/2023 13:44:27 09/12/2023 14:15:37 Pain of right ankle joint 2377095691 2437417 M25.571 Body mass index 30+ - obesity 773536187 Z68.30 [id number] Linda Galindo [place] [address] 0 07/27/2024 14:23:36 07/27/2024 15:46:25 Vomiting 266904436 R11.10 Cough 18607162 R05.9 Abdominal pain 14697736 R10.9 Fatigue 82352877 R53.83 Hyperlipidemia 66843106 E78.5 Hyperglycemia 15154026 R 73.9 Vitamin D deficiency 347 70270 E55.9 Vitamin B deficiency 479 46334 E53.9 Body mass index 30+ - obesity 959673326 Z68.30 Viral gastroenteritis 11 8072502 A08.4 [id number] Linda Galindo [place] [address] 0 10/08/2024 12:54:06 10/08/2024 13:55:15 Syncope 938934548 R55 Fatigue 99908282 R53.83 Mixed hyperlipidemia 267 824544 E78.2 Vitamin D deficiency 347 61361 E55.9 Cobalamin deficiency 190 818607 E53.8 Iron defic iency anemia 20477268 D50.9 Body mass index 30+ - obesity 510178676 Z68.32 [id number] Linda Galindo [place] [address] 0 10/13/2024 08:46:48 10/13/2024 09:12:09 Dizziness 376757593 R42 Body mass index 30+ - obesity 140537787 Z68.32 Health Concerns Section Related Observation LastModified by Organization Detai ls LastModified Time None Recorded Concern Status LastModified by Organization Details LastModified Time None Recorded Advance Directives Directive N: Payers Insurance Date Sequence Insurance Name Policy Number Policy Pulido Covered Member ID Pulido Member ID Guarantor Name 10/13/2024 1 [employer] [id number] David Thakkar [id number] David Thakkar Notes Date Note Type Note Provider Name and Address Organization Details Recorded Time 09/02/2023 text/html pt here today to est PCP. pt c/o right ankle pain and swelling x2 days. pt states that he was at a wedding on sat and was trying to take a picture of them jumping and he fell, rolled his ankle and his leg went behind him and then another person fell on him. he got up and was in pain and has been limping all weekend and then states its painful to bear wt and has been increasing with pain. pt states that at the wedding he took some NSAIDs and drank beer and it got better but by saturday morning it was hurting again. on exam, pt right ankle is swollen with 2+ edema and it painful with palpation and when moving in all direction. i will order xray to r/p a fx. advised pt to JO. Linda Galindo APRN [address] [place], [address], [employer] 09/02/2023 09:51:16 09/12/2023 text/html pt here today with c/o right ankle still not better from his fall on 08/30. pt states that he has finished the steroids and has rested, elevated and wrapped it and it is still painful to walk. he went to work on 09/08 and he was sent home due to he could not perform his work duties. on exam, there is still swelling in the right lateral ankle, with tenderness and the most pain is when moving foot from side to side. pt states that he was in his garage a few days ago and he push a board with his foot and it about brought him to his knees and he almost peed himself and when he walks on the rock in his garage, some of it is large and it rolls his ankle and that is very painful for him. i am going to refer to ortho for further evaluation. Linda Galindo APRN [address] [place], [address], [employer] 09/12/2023 15:45:10 07/27/2024 text/html 33 year old male presents with spells of light headedness, coughing and congestion that causes him to vomit afterwards. This happen every morning x 1 year. Once he vomits he has no symptoms the rest of the day. States vomiting ranges in color, sometimes clear/villasenor/green. States he wakes up with a feeling on mucus drainage down his throat but denies runny nose or sore throat. Denies gerd sx, abd pain, changes in eating/bowel habits. He has cut down ETOH intake from 15 to 4 beers daily without resolution. States changing diet hasnt helped either. Denies CP. Last saw cards awhile ago after heart cath and was told he was just stressed. Exam WDL expect firm round abd, nontender. Will order xray and labs today. pt agrees Linda Galindo APRN [address] [place], [address], [employer] 07/27/2024 15:35:40 10/08/2024 text/html pt here today fo r [...] to recheck bp. Linda Galindo APRN [address] [place], [address], [employer] 10/08/2024 14:16:07 10/13/2024 text/html pt here today fo r recheck of bp. bp is WNL. pt states that he hasnt been checking his bp at home but dotty he was outside and his son was helping him and he had to sit down and have his son do the rest of the work because he got light headed . and then yesterday he went to [place] to [employer] a door and he brought it home and he got light headed and soa. pt denies these symptoms today. i am going to refer to cardio for further evaluation. Linda Galindo APRN [address] [facility], [place], [address], [facility] [employer] 10/13/2024 09:08:50
--- NOTE | 2024-10-29 11:15 | CA_ITS ---
APPROVED REPORT EXAM: Comprehensive 2D, Doppler, and color-flow Echocardiogram Signing Agent: Harleen Martin CRT Ht: 5 ft 7 in Wt: 208lbs BSA: 2.06 BP: 131/95 mmHg Indications: chest pain, smoker, Shortness of Breath 2D Dimensions LA Volume 27.30 mL LA Volume Index 12.90 mL/m2 (M/F) 16-34 M-Mode Dimensions RVDd 2.65 cm (0.9-2.6) LA Diam 2.81 cm (1.9-4.0) LVDd 4.69 cm (3.5-5.7) LVDs 2.79 cm (3.5-5.7) IVSd 1.40 cm (0.6-1.1) PWd 0.75 cm (0.6-1.1) EF (Teich) 71.20% FS 40.50% EDV (Teich) 101.90 mL ESV (Teich) 29.30 mL LV Diastology E Decel Time 170 (160-240 msec) E/A Ratio 1.58 MED A' 7.70 cm/s LAT A' 8.40 cm/s Aortic Valve AO Peak GR. 4.60 mmHg Mitral Valve MV A Velocity 48.0 (40-130 cm/s) E/A Ratio 1.58 Pulmonary Valve PV Peak Velocity 133.0 (50-150 cm/s) Tricuspid Valve TR P. Velocity 240.00 cm/s RAP Estimate 10.00 mmHg RVSP 33.10 mmHg Left Ventricle The left ventricle is normal size. The left ventricular systolic function is low normal. There is normal left ventricular wall thickness. There is normal LV segmental wall motion. The left ventricular diastolic function is normal. LVEF is 50%. Right Ventricle The right ventricle is mildly dilated. The right ventricular systolic function is normal. Atria The left atrium size is normal. The right atrium size is normal. There is no Doppler evidence of interatrial shunt. Aortic Valve Aortic valve is mildly thickened. There is no aortic valvular stenosis. No aortic regurgitation is present. Mitral Valve The mitral valve is normal in structure. No evidence of mitral valve stenosis. There is no mitral valve regurgitation noted. Tricuspid Valve Tricuspid valve is grossly normal in structure and function. Trace tricuspid regurgitation. There is insufficient TR jet to estimate RVSP. Pulmonic Valve The pulmonary valve is normal in structure. Trace pulmonic regurgitation. Great Vessels The aortic root is normal in size. IVC is normal in size and collapses >50% with inspiration. Pericardium There is no pericardial effusion. Other Information Study Quality: Fair Conclusion Low-normal biventricular systolic function (LVEF 50%). Mild RV dilation. No significant valvular stenosis or regurgitation. Electronically signed by : Marija Levy MD 11/04/2024 12:51:59
--- NOTE | 2024-10-29 12:00 | NM_ITS ---
APPROVED REPORT Exam: Nuclear Stress Test Indication: fm hx, sob, syncope, abn ekg Patient Location: Outpatient Stress Tech: Cathleen Baldwin [place] Tech:Teena Persaud CHANNINGKylah RT(R)(N) Ht: 5 ft 8 in Wt: 206 lbs HR: 57 bpm BP: 136/94 mmHg BSA: 2.07 m2 TID: 1.14 BMI: 31.3 History: fm hx, sob, syncope, abn ekg Procedure: Patient exercised on Rui protocol 10:31 minutes and sec, resting heart rate 57 bpm, resting blood pressure 136/94 mmHg, with exercise maximum heart rate achived was 173 bpm which is 93 % of the maximum predicted heart rate and blood pressure was 169/94 mmHg. Test was stopped due to fatigue. Patient denied any complaint of chest pain. Patient has Average exercise capacity, achieved 11.8 METs of workload on treadmill, the blood pressure response to exercise was Normal. Cardiac Stress and Resting SPECT Images: Cardiac Stress and Resting SPECT images were obtained using technetium 99m Myoview 31.0 mCi stress and 10.72 mCi at rest. Resting stress imaging in supine and prone position demonstrate no evidence of fixed or reversible perfusion defects. Gated imaging demonstrates normal global and regional LV systolic function. LVEF is calculated at 50%. Conclusion: No evidence of fixed or reversible perfusion defects. Gated imaging demonstrates normal global and regional LV systolic function. LVEF is calculated at 50%. Electronically signed by : Marija Levy MD 10/31/2024 00:09:50
[2024-10-29] MEDS: ISOTOPE MYOVIEW (PER STUDY) 1 DOSE IV (13:18)
[2024-10-29] MEDS: SODIUM CHLORIDE 0.9% 10ML SYR (RAD ONLY) 10 ML IV ×2 (13:18)
== END 2024-10-29 23:59 | disposition home or self-care (01) ==
LOC: RT 10:39
PROVIDERS: PCP Nurse Practitioner; Visit Provider Internal Medicine
DX: I51.7 Cardiomegaly (principal); F17.200 Nicotine dependence, unspecified, uncomplicated; R94.31 Abnormal electrocardiogram [ECG] [EKG]; R55 Syncope and collapse; R42 Dizziness and giddiness
CPT/HCPCS: 78452; 93017; 93018; 93306; A9502